=== PATIENT | female | born 1975 | race Two or more races ===

== ENCOUNTER 2016-07-10 08:52 | Day surgery (SDC) | payer OTHER ==
[~2016-07-10] VITALS: Ht 149.9 cm; Wt 47.0 kg
[2016-07-10] MEDS ORDERED: CALC667C PO (10:10)
[2016-07-10] MEDS ORDERED: SYN112 PO (10:10)
[2016-07-10] MEDS ORDERED: TIROSINT (10:10)
[2016-07-10] MEDS ORDERED: SEVE800T10 PO ×2 (10:10→10:29)
[2016-07-10] MEDS ORDERED: CALC600T11 PO (10:10)
[2016-07-10] MEDS ORDERED: CNC30T PO (10:10)
[2016-07-10 10:12] VITALS: BP 126/78; PULSE 72; RESP 18; Ht 149.9 cm; Wt 47.0 kg
[2016-07-10] MEDS ORDERED: IODIXANOL LOCM 50 ML BTL ONE (11:33)
[2016-07-10] MEDS ORDERED: LIDOCAINE 1% (MDV) 20 ML INJ ONE (11:33)
[2016-07-10] MEDS ORDERED: HEPARIN 1000 UNITS/NS (A-LINE) 1,000 ML ONE (11:33)
[2016-07-10] MEDS ORDERED: SOD CHLORIDE 0.9% 500 ML ONE (11:39)
[2016-07-10] MEDS ORDERED: HEPARIN 1000 UNITS/ML 10 ML INJ ONE (12:11)
[2016-07-10 13:21] VITALS: BP 128/73; PULSE 94; RESP 18
--- NOTE | 2016-07-10 17:17 | OPR ---
DATE OF OPERATION: PREOPERATIVE DIAGNOSIS: Dysfunctional left upper extremity fistula. POSTOPERATIVE DIAGNOSIS: Dysfunctional left upper extremity fistula. OPERATIONS PERFORMED: 1. Left arm shuntogram. 2. Left upper extremity arteriogram. 3. Central venogram. 4. Interpretation and supervision of shuntogram, venogram and arteriogram. 5. Ultrasound guidance into the central vein. 6. Fluoroscopy. 7. Conscious sedation for 1 hour. CONSENT: Risks, benefits, complications, alternative therapies explained to the patient and the [facility], consent obtained. OPERATIVE TECHNIQUE: The patient was placed in supine position, prepped and draped in usual sterile fashion. Access was gained in the left arm fistula which was in the arm. Micropuncture was infuse d using ultrasound guidance technique. A shuntogram and arteriogram was then performed. Interpreta tion and supervision of the shuntogram and arteriogram revealed the graft which appeared to be going from the brachial artery to the basilic vein in the left arm. The graft appeared to be patent. Th ere was a 90% stenosis in the arterial anastomosis and the venous anastomosis was patent; however, t he basilic vein was completely occluded distal to the anastomosis and that went through collaterals to the brachial vein which was patent, into axillary an vein which was also patent and a subclavian vein which was patent, and innominate vein and superior vena cava, which were also patent. Procedur e also central venogram. The arterial anastomosis was inspected. It was patent; however, there was a 90% stenosis. Multiple attempts were made to pass a wire through the anastomosis which was not successful. The catheter w as then removed. The patient will be assessed for a revision of the fistula. Discussed with the nena reynolds. All questions answered. Dictated By: THEO VIDALES/VIRAJ Conf#: [id number] DID#: [id number]
== END 2016-07-10 13:35 | disposition home or self-care (01) ==
LOC: SDS 08:52
PROVIDERS: ATTEND Thoracic Surgery (Cardiothoracic Vascular Surgery)
DX: T82.898A Other specified complication of vascular prosthetic devices, implants and grafts, initial encounter (principal); Y84.1 Kidney dialysis as the cause of abnormal reaction of the patient, or of later complication, without mention of misadventure at the time of the procedure; Y92.89 Other specified places as the place of occurrence of the external cause; I12.0 Hypertensive chronic kidney disease with stage 5 chronic kidney disease or end stage renal disease; N18.6 End stage renal disease
CPT/HCPCS: 36901; 84132; 84703; C1725; C1769; J1644; J7040; Q9967; Z7610

== ENCOUNTER 2016-07-21 10:55 | Inpatient (IN) | payer OTHER ==
[~2016-07-21] VITALS: Ht 149.9 cm; Wt 45.6 kg
[~2016-07-21 10:55] MED LIST: CALC667C PO; CNC30T PO; SEVE800T10 PO; SYN112 PO
[2016-07-21 14:17] LABS: BASOPHIL # 0.1 10^3/ul (0.0-0.1); BASOPHILS % 0.5 % (0.0-2.0); EOSINOPHILS # 0.4 10^3/ul (0.0-0.5); EOSINOPHILS % 3.4 % (0.0-7.0); HEMOGLOBIN 11.2 g/dl (12.0-16.0); LYMPHOCYTES # 2.5 10^3/ul (0.8-2.9); MEAN CORPUSCULAR HEMOGLOBIN 32.6 pg (29.0-33.0); MEAN CORPUSCULAR HGB CONC 33.9 g/dl (32.0-37.0); MEAN CORPUSCULAR VOLUME 96.2 fl (82.0-101.0); MEAN PLATELET VOLUME 8.3 fl (7.4-10.4); MONOCYTE # 0.6 10^3/ul (0.3-0.9); MONOCYTES % 4.8 % (0.0-11.0); NEUTROPHIL # 8.3 10^3/ul (1.6-7.5); NEUTROPHILS % 70.3 % (39.0-77.0); PLATELET COUNT 325 10^3/UL (140-440); RED BLOOD COUNT 3.43 10^6/ul (4.20-5.40); RED CELL DISTRIBUTION WIDTH 13.7 % (11.5-14.5); UNCORRECTED WBC 11.8 10^3/ul (4.8-10.8); WHITE BLOOD COUNT 11.8 10^3/ul (4.8-10.8)
--- NOTE | 2016-07-21 14:21 | RADRPT ---
PROCEDURE: XR Chest. CLINICAL INDICATION: Renal Failure. Dyspnea. TECHNIQUE: Single frontal chest x-ray. COMPARISON: None. FINDINGS: The lungs are clear of acute infiltrates, edema, effusions, or masses.. There is mild cardiomegaly. . The osseous structures are intact. IMPRESSION: No acute cardiopulmonary disease. Mild cardiomegaly. RPTAT: HJPL .Jose De Jesus Gomez MD, MD Date Time Electronically viewed and signed by .Jose De Jesus Gomez MD, on 07/21/2016 14:21 .L/
[2016-07-21 14:32] LABS: POTASSIUM 4.5 mmol/L (3.5-5.1)
[2016-07-21 14:34] LABS: INR 0.98; PARTIAL THROMBOPLASTIN TIME 26.3 Sec (25.0-35.0)
[2016-07-21 14:35] LABS: CREATININE 9.31 mg/dl (0.44-1.00)
[2016-07-21 14:36] LABS: CALCIUM 9.6 mg/dl (8.4-10.2)
[2016-07-21 14:57] LABS: CONDITION 1
[2016-07-21] MEDS ORDERED: NACL 0.9% 3 ML SYG IV SCH (15:00)
[2016-07-21] MEDS ORDERED: ACETAMINOPHEN 325 MG TAB PO PRN ×2 (15:00→16:00)
[2016-07-21] MEDS ORDERED: ONDANSETRON 4 MG INJ IV PRN ×2 (15:00→16:00)
[2016-07-21] MEDS ORDERED: morphine 2 MG INJ IV PRN (15:00)
--- NOTE | 2016-07-21 15:03 | ERA ---
ER Documentation Chief Complaint Date/Time DATE: 07/21/16 TIME: 13:48 Chief Complaint left upper arm fistula clotted. unable to dialyze today. no complaints. HPI 41-year-old female with history of end-stage renal disease on dialysis T//Sat hypothyroidism status post thyroidectomy referred to the ED for evaluation of malfunctioning left upper extremity AV shunt. On 07/10/2014 patient had a shuntogram which revealed a 90% stenosis in the arterial side which was unable to be repaired. Today dialysis could not be performed was referred to the ED. She denies chest pain or palpitations. No shortness of breath or cough. No abdominal pain nausea or vomiting. No fevers or chills. ROS All systems reviewed and are negative except as per history of present illness. Medications Home Meds Reported Medications Sevelamer Hcl* (Renagel*) 800 Mg Tablet, 800 MG PO WITH MEALS, TAB 07/10/16 Calcium Acetate* (Calcium Acetate*) 667 Mg Capsule, 667 MG PO WITH MEALS, #30 CAP 07/10/16 Cinacalcet* (Sensipar*) 30 Mg Tab, 30 MG PO DAILY, TAB 07/10/16 Levothyroxine Sodium* (Levothyroxine Sodium*) 112 Mcg Tablet, 112 MCG PO BEFORE BREAKFAST, #30 TAB 07/10/16 Allergies Allergies: Coded Allergies: Penicillins (Verified Allergy, Severe, 07/10/16) PMhx/Soc Reviewed in chart. As per HPI. History of Surgery: Yes (AV FISTUAL PLACEMENT, THYROIDECTOMY, C /S X1) Anesthesia Reaction: No Hx Neurological Disorder: No Hx Respiratory Disorders: No Hx Cardiac Disorders: Yes (PALPITATIONS) Hx Psychiatric Problems: Yes (DEPRESSION) Hx Miscellaneous Medical Probl: Yes (ANEMIA) Hx Alcohol Use: No Hx Substance Use: No Hx Tobacco Use: No Smoking Status: Never smoker FmHx Reviewed in chart. Not relevant to presenting complaint. Physical Exam Vitals Vital Signs Date Time Temp Pulse Resp B/P Pulse Ox O2 Delivery O2 Flow Rate FiO2 07/21/16 11:03 98.6 84 20 119/78 98 Physical Exam Const: Alert, no acute distress. Head: Atraumatic Eyes: Normal Conjunctiva ENT: Normal External Ears, Nose and Mouth. Neck: Full range of motion. No JVD. Resp: Clear to auscultation bilaterally Cardio: Regular rate and rhythm, no murmurs Abd: Soft, non tender, non distended. Normal bowel sounds Skin: No petechiae or rashes Back: No midline or flank tenderness Ext: No cyanosis, or edema. Left upper extremity AV shunt without palpable thrill or audible bruit. Neur: Awake and alert. No focal deficit. Psych: Normal Mood and Affect Result Diagram: 07/21/16 1400 07/21/16 1400 Results 24 hrs Laboratory Tests Test 07/21/16 14:00 Activated Partial Thromboplast Time 26.3Sec Anion Gap 28 Basophils # 0.110^3/ul Basophils % 0.5% Blood Urea Nitrogen 60mg/dl Calcium Level 9.6mg/dl Carbon Dioxide Level 22mmol/L Chloride Level 96mmol/L Creatinine 9.31mg/dl Eosinophils # 0.410^3/ul Eosinophils % 3.4% Glucose Level 115mg/dl Hematocrit 33.0% Hemoglobin 11.2g/dl INR International Normalized Ratio 0.98 Lymphocytes # 2.510^3/ul Lymphocytes % 21.0% Mean Corpuscular Hemoglobin 32.6pg Mean Corpuscular Hemoglobin Concent 33.9g/dl Mean Corpuscular Volume 96.2fl Mean Platelet Volume 8.3fl Monocytes # 0.610^3/ul Monocytes % 4.8% Neutrophils # 8.310^3/ul Neutrophils % 70.3% Nucleated Red Blood Cells # 0.010^3/ul Nucleated Red Blood Cells % 0.0/100WBC Platelet Count 04183^3/UL Potassium Level 4.5mmol/L Prothrombin Time 13.0Sec Prothrombin Time Ratio 1.0 Red Blood Count 3.4310^6/ul Red Cell Distribution Width 13.7% Sodium Level 141mmol/L White Blood Count 11.810^3/ul Current Medications Medications (Trade) Dose Ordered Sig/Sandor Route PRN Reason Start Time Stop Time Status Last Admin Dose Admin IV Flush (NS 3 ml) 3 ml PER PROTOCOL IV 07/21/16 15:00 Ondansetron HCl (Zofran Inj) 4 mg Q6H PRN IV NAUSEA AND/OR VOMITING 07/21/16 15:00 Acetaminophen (Tylenol Tab) 650 mg Q6H PRN PO PAIN LEVEL 1-3 OR FEVER 07/21/16 15:00 Morphine Sulfate (morphine) 2 mg Q4H PRN IV SEVERE PAIN LEVEL 7-10 07/21/16 15:00 Famotidine (Pepcid) 20 mg DAILY PO 07/21/16 21:00 Heparin Sodium (Porcine) (Heparin (5000 Units/0.5 ml)) 5,000 unit Q12 SC 07/21/16 21:00 Calcium Acetate (Phoslo) 667 mg WITH MEALS PO 07/21/16 18:00 Cinacalcet (Sensipar) 30 mg DAILY PO 07/22/16 09:00 UNV Levothyroxine Sodium (Synthroid) 112 mcg BEFORE BREAKFAST PO 07/22/16 07:00 UNV Sevelamer HCl (Renagel) 800 mg WITH MEALS PO 07/21/16 18:00 EKG: TIME: 14:03. sinus rhythm. Rate 81. No acute ST segment elevation depression. No ectopy. EP Interpretation: Abnormal EKG. IMAGING: PROCEDURE: XR Chest. CLINICAL INDICATION: Renal Failure. Dyspnea. TECHNIQUE: Single frontal chest x-ray. COMPARISON: None. FINDINGS: The lungs are clear of acute infiltrates, edema, effusions, or masses.. There is mild cardiomegaly.. The osseous structures are intact. IMPRESSION: No acute cardiopulmonary disease. Mild cardiomegaly. RPTAT: HJPL .Jose De Jesus Gomez MD, Date Time Electronically viewed and signed by .Jose De Jesus Gomez MD, on 07/21/2016 14:21 .L/ PROCEDURE: XR Chest. CLINICAL INDICATION: Renal Failure. Dyspnea. TECHNIQUE: Single frontal chest x-ray. COMPARISON: None. FINDINGS: The lungs are clear of acute infiltrates, edema, effusions, or masses.. There is mild cardiomegaly.. The osseous structures are intact. IMPRESSION: No acute cardiopulmonary disease. Mild cardiomegaly. RPTAT: HJPL .Jose De Jesus Gomez MD, MD Date Time Electronically viewed and signed by .Jose De Jesus Gomez MD, on 07/21/2016 14:21 .L/ Procedures/MDM DOCUMENTS REVIEWED: ED nurse, prior records MEDICAL DECISION MAKIN-year-old female with history of end-stage renal disease on dialysis T/TH/Sat and hypothyroidism status post thyroidectomy referred to the ED for evaluation of malfunctioning left upper extremity AV shunt. Patient has a nonfunctioning left upper extremity AV shunt will need placement of temporary dialysis access subsequent revision. No evidence of volume overload or hyperkalemia. Vascular surgery was consulted. Patient will be admitted to [facility]. Counseled patient and family regarding diagnosis, diagnostic results and plan for admission. CALLS/CONSULTS: Time 14:30, Dr. Askew, Recommends admission and will place dialysis catheter CALLS/CONSULTS: Time 14:50, Dr. Covarrubias, Recommends admission to [facility]. PATIENT CARE TRANSITIONED: Time: 14:55, Dr. Covarrubias. Departure Diagnosis: Primary Impression: Problem with dialysis access Qualified Code: T82.898A - Problem with dialysis access, initial encounter Additional Impressions: End stage renal disease on dialysis Postoperative hypothyroidism Uremia Condition: Serious VIN ALVARADO MD Jul 21, 2016 15:01 VIN ALVARADO MD Jul 21, 2016 15:01
[2016-07-21 15:53] LABS: MAGNESIUM 3.3 mg/dl (1.7-2.5)
--- NOTE | 2016-07-21 15:53 | HP ---
Date/Time of Note Date/Time of Note DATE: 07/21/16 TIME: 15:45 Assessment/Plan VTE Prophylaxis VTE Prophylaxis Intervention: heparin Assessment/Plan Assessment/Plan 41 yo female with a past medical history ESRD on HD, hypothyroidism who came in for clotted fistula. 1. Clotted AV fistula - will admit the patient to med/surg, consult Dr. Askew for thrombectomy, IV heparin, jordan catheter to be placed. 2. ESRD on HD - once jordan placed, dialysis as per nephro 3. Anemia of chronic kidney disease - continue with epogen 4. Hypothyroidism - check TSH, continue with synthroid 5. Leukocytosis - reactive - monitor trend 6. GI ppx - pepcid po 7. DVT ppx - heparin answered all of her questions. as per clinical course. this history and physical took greater then 45 minutes to complete HPI/ROS Admit Date/Time Admit Date/Time 07/21/16, 3:45 pm Hx of Present Illness 41 yo female with a past medical history ESRD on HD, hypothyroidism who came in for clotted fistula. She went to the dialysis center today, and there was blood coming out of the fistula. They sent her here to [facility] ER for further evaluation and treatment. She denies any chest pain, shortness of breath , loss of consciousness, headaches, urinary/bowel irregularities, fevers/chills , nausea/vomiting/diarrhea/constipation, or other constitutional symptoms. ED course: Dr. Askew was notified ROS 14 point review of systems completed, please refer to HPI for any positive findings PMH/Family/Social Past Medical History Medical History: hypothyroid, renal disease Past Surgical History AV fistula left upper extremity Family History Significant Family History: no pertinent family hx Social History Alcohol Use: none Smoking Status: Never smoker Drug Use: none Exam/Review of Systems Vital Signs Vitals Vital Signs Date Time Temp Pulse Resp B/P Pulse Ox O2 Delivery O2 Flow Rate FiO2 07/21/16 11:03 98.6 84 20 119/78 98 Exam Exam Gen Fatou: NAD, AAOx4 HEENT: NC/AT, PERRLA, EOMI, no pharyngeal erythema, no tonsillar exudates, no lymphadenopathy, no JVD, no carotid bruits NECK: supple, no thyromegaly THORAX: symmetrical, no obvious deformities CV: S1S2, RRR, no M/G/R Lungs: CTAB no W/C/R/R Abd: soft, NT/ND, +BS, no rebound, no guarding, neg HSM EXT: no edema, no ecchymosis, no clubbing, FROM, LUE extremity no bruit/thrill identified Neuro: CN II-XII grossly intact, no focal deficits Psych: good mentation, alert and oriented, good mood and affect Skin: C/D/I Labs Result Diagram: 07/21/16 1400 07/21/16 1400 Medications Medications Current Medications Ondansetron HCl (Zofran Inj) 4 mg Q6H PRN IV NAUSEA AND/OR VOMITING; Start 04/26 at 15:00 Acetaminophen (Tylenol Tab) 650 mg Q6H PRN PO PAIN LEVEL 1-3 OR FEVER; Start at 15:00 Morphine Sulfate (morphine) 2 mg Q4H PRN IV SEVERE PAIN LEVEL 7-10; Start 07/21 at 15:00 Famotidine (Pepcid) 20 mg DAILY PO ; Start 07/21/16 at 21:00 Heparin Sodium (Porcine) (Heparin (5000 Units/0.5 ml)) 5,000 unit Q12 SC ; Start 07/21/16 at 21:00 Cinacalcet (Sensipar) 30 mg DAILY PO ; Start 07/22/16 at 09:00; Status UNV Procedures Procedures CXR IMPRESSION: No acute cardiopulmonary disease. Mild cardiomegaly. WAYNE STARR MD Jul 21, 2016 15:52
[2016-07-21 15:54] LABS: CHOL/HDL RATIO 5.8 RATIO
[2016-07-21 16:00] VITALS: TEMP 98.6
[2016-07-21 16:54] LABS: THYROID STIMULATING HORMONE 25.2 MIU/L (0.465-4.680)
[2016-07-21 20:29] VITALS: BP 128/77; RESP 20
[2016-07-21] MEDS: SEVELAMER 800 MG TAB PO SCH (21:03)
[2016-07-21] MEDS: CALCIUM ACETATE 667 MG CAP PO SCH (21:03)
[2016-07-21] MEDS: FAMOTIDINE 20 MG TAB PO SCH (21:04)
[2016-07-21] MEDS: HEPARIN 5,000 UNIT/0.5 ML SYG SC SCH (21:04)
[2016-07-22] VITALS (11 sets, daily range): BP systolic 93–119; BP diastolic 58–78; PULSE 85–99; RESP 18
[2016-07-22 06:17] LABS: BASOPHILS % 0.4 % (0.0-2.0); EOSINOPHILS # 0.3 10^3/ul (0.0-0.5); EOSINOPHILS % 3.8 % (0.0-7.0); HEMOGLOBIN 10.2 g/dl (12.0-16.0); LYMPHOCYTES # 2.1 10^3/ul (0.8-2.9); LYMPHOCYTES % 22.4 % (15.0-51.0); MEAN CORPUSCULAR HGB CONC 34.1 g/dl (32.0-37.0); MEAN CORPUSCULAR VOLUME 96.8 fl (82.0-101.0); MEAN PLATELET VOLUME 8.2 fl (7.4-10.4); MONOCYTE # 0.4 10^3/ul (0.3-0.9); MONOCYTES % 4.7 % (0.0-11.0); NEUTROPHIL # 6.3 10^3/ul (1.6-7.5); NEUTROPHILS % 68.7 % (39.0-77.0); PLATELET COUNT 278 10^3/UL (140-440); RED CELL DISTRIBUTION WIDTH 13.4 % (11.5-14.5); UNCORRECTED WBC 9.2 10^3/ul (4.8-10.8); WHITE BLOOD COUNT 9.2 10^3/ul (4.8-10.8)
[2016-07-22 06:35] LABS: POTASSIUM 5.8 mmol/L (3.5-5.1)
[2016-07-22 06:36] LABS: CONDITION 1
[2016-07-22 06:38] LABS: CREATININE 9.68 mg/dl (0.44-1.00)
[2016-07-22 06:39] LABS: CALCIUM 9.8 mg/dl (8.4-10.2)
[2016-07-22] MEDS ORDERED: LEVOTHYROXINE 112 MCG TAB PO SCH (07:00)
[2016-07-22] MEDS: FAMOTIDINE 20 MG TAB PO SCH (08:35)
[2016-07-22] MEDS: SEVELAMER 800 MG TAB PO SCH ×3 (08:35→17:41)
[2016-07-22] MEDS: CALCIUM ACETATE 667 MG CAP PO SCH ×3 (08:35→17:41)
[2016-07-22] MEDS: CINACALCET 30 MG TAB PO SCH (08:35)
[2016-07-22] MEDS: HEPARIN 5,000 UNIT/0.5 ML SYG SC SCH ×2 (08:36→20:40)
--- NOTE | 2016-07-22 09:17 | CONS ---
DATE OF ADMISSION: 07/21/2016 DATE OF CONSULTATION: 07/21/2016 TYPE OF CONSULTATION: Nephrology. REFERRING PHYSICIAN: Juancho Covarrubias MD REASON FOR CONSULTATION: End-stage renal disease on hemodialysis who presented with a clotted AV fistula, missed hemodialysis. HISTORY OF PRESENT ILLNESS: This is a 41-year-old female with a past medical history of end-stage renal disease on hemodialysis, hypothyroidism, anemia of chronic kidney disease, history of AV fistula placed by Dr. Askew who presented with a clotted AV fistula. The patient went to dialysis unit where she was noted to have a clotted AV fistula, so she was sent to the [facility] Emergency Room. The patient is getting admitted because she missed her hemodialysis and has a clotted AV fistula. She currently has no dialysis access. Vascular surgery, Dr. Askew, has been consulted. REVIEW OF SYSTEMS: As per HPI. PAST MEDICAL HISTORY: Hypertension, hyperlipidemia, hypothyroidism, end-stage renal disease on hemodialysis. PAST SURGICAL HISTORY: History of AV fistula and history of previous PermCath dialysis catheter placement. SOCIAL HISTORY: No smoking, alcohol, or recreational drug use. FAMILY HISTORY: No history of any chronic kidney disease, CVA, stroke, or NC in the family. PHYSICAL EXAMINATION: VITAL SIGNS: Temperature 98.6, heart rate 77, respirations 20, blood pressure 121/82, saturation 100% on room air. GENERAL: Awake, alert, in no distress. HEENT: Normal. Oropharynx clear. NECK: Supple, no JVD, no lymphadenopathy. LUNGS: Clear to auscultation. No crackles, no wheezes. HEART: S1, S2, with regular rate and rhythm, no murmur. ABDOMEN: Soft, nontender, nondistended. Bowel sounds are present. EXTREMITIES: No clubbing, cyanosis, edema. NEUROLOGICAL: Nonfocal, intact. PSYCHIATRIC: Appropriate affect and mood. SKIN: Left upper extremity AV fistula in place. No bruit. No thrill. Likely clotting. LABORATORY DATA/DIAGNOSTIC IMAGING: WBC 11.8, hemoglobin 11.2, platelet count 325. Sodium 141, potassium 4.5, chloride 96, bicarbonate 22, BUN 60, creatinine 9.3, glucose 115, calcium 9.6. LFTs triglycerides 405, magnesium 3.3. TSH 25.2. PT 13, PTT 26.3, INR 0.98. Chest x-ray, 1 view done in the emergency room, shows no acute cardiopulmonary disease, mild cardiomegaly. IMPRESSION: This is a 41-year-old female with 1. Clotted left upper extremity AV fistula, missed hemodialysis for today. 2. No dialysis access is available. 3. End-stage renal disease on hemodialysis. 4. Hypertension. 5. Hypothyroidism. 6. Leukocytosis, reactive. PLAN: 1. Thank you, Dr. Juancho Covarrubias, for this consultation. The patient currently seen in the emergency room. She is getting admitted to the med/surg floor. 2. The patient's potassium and other electrolytes have been stable. Her blood pressure is normal, saturation is normal, chest x-ray negative for any acute findings. I will plan for her hemodialysis to be done tomorrow after the [place] dialysis catheter placement or declotting of her left upper extremity AV fistula. 3. Vascular surgery, Dr. Askew, has been consulted from the emergency room , so we will wait until the patient is evaluated by vascular surgery. The patient is currently seen in the emergency room. She will be followed up along with the primary care service and vascular surgery, Dr. Askew. Total Time Spent in patient Care and consultation including communication with Nursing Staff and educating Patient and Familiy is more than 60 minutes. Dictated By: STANLEY WORKMAN MD, KP/VIRAJ Conf#: [id number] DID#: [id number]
[2016-07-22 12:11] LABS: T3 UPTAKE 29.8 % (23.5-40.5)
--- NOTE | 2016-07-22 12:14 | PN ---
Date/Time of Note Date/Time of Note DATE: 07/22/16 TIME: 12:09 Assessment/Plan VTE Prophylaxis VTE Prophylaxis Intervention: heparin Lines/Catheters IV [facility]from [facility] Urinary Cath still in place: No Assessment/Plan Assessment/Plan 41 yo female with a past medical history ESRD on HD, hypothyroidism who came in for clotted fistula. 1. Clotted AV fistula - jordan placed, dialysis today, thrombectomy possibly tomorrow 07/23/2016 2. ESRD on HD - jordan placed, dialysis as per nephro 3. Anemia of chronic kidney disease - continue with epogen 4. Hypothyroidism - elevated to 25 TSH - increased to 138 mcg today, continue with synthroid, endo consulted 5. Leukocytosis - reactive - monitor trend 6. GI ppx - pepcid po 7. DVT ppx - heparin answered all of her questions. as per clinical course. angiogram with thrombectomy tomorrow this progress note took greater than 40 minutes to complete Subjective 24 Hr Interval Summary Free Text/Dictation Patient was admitted for clotted fistula. No overnight events. She had a jordan catheter placed. Spoke to her about the care plan. 15 minutes spent. Exam/Review of Systems Vital Signs Vitals Vital Signs Date Time Temp Pulse Resp B/P Pulse Ox O2 Delivery O2 Flow Rate FiO2 07/22/16 08:23 98.1 86 18 93/58 100 07/21/16 16:00 Room Air Intake and Output 07/21/16 07/21/16 07/22/16 15:00 23:00 07:00 Intake Total 360 ml Balance 360 ml Exam Gen Fatou: NAD, AAOx4 HEENT: NC/AT, PERRLA, EOMI, no pharyngeal erythema, no tonsillar exudates, no lymphadenopathy, no JVD, no carotid bruits NECK: supple, no thyromegaly THORAX: symmetrical, no obvious deformities CV: S1S2, RRR, no M/G/R Lungs: CTAB no W/C/R/R Abd: soft, NT/ND, +BS, no rebound, no guarding, neg HSM EXT: no edema, no ecchymosis, no clubbing, FROM, LUE extremity no bruit/thrill identified, jordan placed right groin Neuro: CN II-XII grossly intact, no focal deficits Psych: good mentation, alert and oriented, good mood and affect Skin: C/D/I Results Result Diagram: 07/22/16 0535 07/22/16 0535 Results 24 hrs Laboratory Tests Test 07/21/16 14:00 07/22/16 05:35 Activated Partial Thromboplast Time 26.3 Anion Gap 28 H 24 H Basophils # 0.1 0.0 Basophils % 0.5 0.4 Blood Urea Nitrogen 60 H 69 H Calcium Level 9.6 9.8 Carbon Dioxide Level 22 20 L Chloride Level 96 L 99 Cholesterol Level 234 H Cholesterol/HDL Ratio 5.8 Creatinine 9.31 H 9.68 H Eosinophils # 0.4 0.3 Eosinophils % 3.4 3.8 Glucose Level 115 82 HDL Cholesterol 40 Hematocrit 33.0 L 30.0 L Hemoglobin 11.2 L 10.2 L Hemoglobin A1c 4.5 INR International Normalized Ratio 0.98 LDL Cholesterol, Calculated 113 Lymphocytes # 2.5 2.1 Lymphocytes % 21.0 22.4 Magnesium Level 3.3 H Mean Corpuscular Hemoglobin 32.6 33.0 Mean Corpuscular Hemoglobin Concent 33.9 34.1 Mean Corpuscular Volume 96.2 96.8 Mean Platelet Volume 8.3 8.2 Monocytes # 0.6 0.4 Monocytes % 4.8 4.7 Neutrophils # 8.3 H 6.3 Neutrophils % 70.3 68.7 Nucleated Red Blood Cells # 0.0 0.0 Nucleated Red Blood Cells % 0.0 0.0 Platelet Count 325 278 Potassium Level 4.5 5.8 H Prothrombin Time 13.0 Prothrombin Time Ratio 1.0 Red Blood Count 3.43 L 3.10 L Red Cell Distribution Width 13.7 13.4 Sodium Level 141 137 Thyroid Stimulating Hormone (TSH) 25.200 H Triglycerides Level 405 H White Blood Count 11.8 H 9.2 # Medications Medications Current Medications Ondansetron HCl (Zofran Inj) 4 mg Q6H PRN IV NAUSEA AND/OR VOMITING; Start 04/26 at 15:00 Acetaminophen (Tylenol Tab) 650 mg Q6H PRN PO PAIN LEVEL 1-3 OR FEVER; Start at 15:00 Morphine Sulfate (morphine) 2 mg Q4H PRN IV SEVERE PAIN LEVEL 7-10; Start 07/21 at 15:00 Famotidine (Pepcid) 20 mg DAILY PO Last administered on 07/22/16 08:35; Admin Dose 20 MG; Start 07/21/16 at 21:00 Heparin Sodium (Porcine) (Heparin (5000 Units/0.5 ml)) 5,000 unit Q12 SC Last administered on 07/22/16 08:36; Admin Dose 5,000 UNIT; Start 07/21/16 at 21:00 Cinacalcet (Sensipar) 30 mg DAILY PO Last administered on 07/22/16 08:35; Admin Dose 30 MG; Start 07/22/16 at 09:00 Levothyroxine Sodium (Synthroid) 137 mcg DAILY@06 PO ; Start 07/23/16 at 06:00 WAYNE STARR MD Jul 22, 2016 12:14
--- NOTE | 2016-07-22 12:25 | CONS ---
Date/Time of Note Date/Time of Note DATE: 07/22/16 TIME: 12:23 Assessment/Plan Assessment/Plan Additional Assessment/Plan 1. Clotted left upper extremity AV fistula, missed hemodialysis for today. 2. No dialysis access is available. 3. End-stage renal disease on hemodialysis. 4. Hypertension. 5. Hypothyroidism. 6. Leukocytosis, reactive. PLAN: plan for HD today through [facility] HD catheter to declot her AVF will follow up pt gest HD in [place] Consultation Date/Type/Reason Admit Date/Time Jul 21, 2016 at 15:51 Initial Consult Date 07/21/2016 Type of Consultation: NEPHROLOGY Reason for Consultation ESRD on HD, clotted AVF Referring Provider: WAYNE STARR MD 24 HR Interval Summary Free Text/Dictation s/p jordan HD catheter Exam/Review of Systems Vital Signs Vitals Vital Signs Date Time Temp Pulse Resp B/P Pulse Ox O2 Delivery O2 Flow Rate FiO2 07/22/16 08:23 98.1 86 18 93/58 100 07/21/16 16:00 Room Air Intake and Output 07/21/16 07/21/16 07/22/16 14:59 22:59 06:59 Intake Total 360 ml Balance 360 ml Exam GENERAL: Awake, alert, in no distress. HEENT: Normal. Oropharynx clear. NECK: Supple, no JVD, no lymphadenopathy. LUNGS: Clear to auscultation. No crackles, no wheezes. HEART: S1, S2, with regular rate and rhythm, no murmur. ABDOMEN: Soft, nontender, nondistended. Bowel sounds are present. EXTREMITIES: No clubbing, cyanosis, edema. NEUROLOGICAL: Nonfocal, intact. PSYCHIATRIC: Appropriate affect and mood. SKIN: Left upper extremity AV fistula in place. No bruit. No thrill. Likely clotting. Results Result Diagram: 07/22/16 0535 07/22/16 0535 Results 24 hrs Laboratory Tests Test 07/21/16 14:00 07/22/16 05:35 07/22/16 10:54 Activated Partial Thromboplast Time 26.3 Anion Gap 28 H 24 H Basophils # 0.1 0.0 Basophils % 0.5 0.4 Blood Urea Nitrogen 60 H 69 H Calcium Level 9.6 9.8 Carbon Dioxide Level 22 20 L Chloride Level 96 L 99 Cholesterol Level 234 H Cholesterol/HDL Ratio 5.8 Creatinine 9.31 H 9.68 H Eosinophils # 0.4 0.3 Eosinophils % 3.4 3.8 Glucose Level 115 82 HDL Cholesterol 40 Hematocrit 33.0 L 30.0 L Hemoglobin 11.2 L 10.2 L Hemoglobin A1c 4.5 INR International Normalized Ratio 0.98 LDL Cholesterol, Calculated 113 Lymphocytes # 2.5 2.1 Lymphocytes % 21.0 22.4 Magnesium Level 3.3 H Mean Corpuscular Hemoglobin 32.6 33.0 Mean Corpuscular Hemoglobin Concent 33.9 34.1 Mean Corpuscular Volume 96.2 96.8 Mean Platelet Volume 8.3 8.2 Monocytes # 0.6 0.4 Monocytes % 4.8 4.7 Neutrophils # 8.3 H 6.3 Neutrophils % 70.3 68.7 Nucleated Red Blood Cells # 0.0 0.0 Nucleated Red Blood Cells % 0.0 0.0 Platelet Count 325 278 Potassium Level 4.5 5.8 H Prothrombin Time 13.0 Prothrombin Time Ratio 1.0 Red Blood Count 3.43 L 3.10 L Red Cell Distribution Width 13.7 13.4 Sodium Level 141 137 Thyroid Stimulating Hormone (TSH) 25.200 H Triglycerides Level 405 H White Blood Count 11.8 H 9.2 # Free Thyroxine Index 2.44 Thyroxine (T4) 8.2 Triiodothyronine (T3) Uptake 29.8 Medications Medications Current Medications Ondansetron HCl (Zofran Inj) 4 mg Q6H PRN IV NAUSEA AND/OR VOMITING; Start 04/26 at 15:00 Acetaminophen (Tylenol Tab) 650 mg Q6H PRN PO PAIN LEVEL 1-3 OR FEVER; Start at 15:00 Morphine Sulfate (morphine) 2 mg Q4H PRN IV SEVERE PAIN LEVEL 7-10; Start 07/21 at 15:00 Famotidine (Pepcid) 20 mg DAILY PO Last administered on 07/22/16 08:35; Admin Dose 20 MG; Start 07/21/16 at 21:00 Heparin Sodium (Porcine) (Heparin (5000 Units/0.5 ml)) 5,000 unit Q12 SC Last administered on 07/22/16 08:36; Admin Dose 5,000 UNIT; Start 07/21/16 at 21:00 Cinacalcet (Sensipar) 30 mg DAILY PO Last administered on 07/22/16t 08:35; Admin Dose 30 MG; Start 07/22/16 at 09:00 Levothyroxine Sodium (Synthroid) 137 mcg DAILY@06 PO ; Start 07/23/16 at 06:00 STANLEY WORKMAN MD Jul 22, 2016 12:25
--- NOTE | 2016-07-22 13:17 | CONS ---
Date/Time of Note Date/Time of Note DATE: 07/22/16 TIME: 13:11 Assessment/Plan Assessment/Plan Problems: (1) Postoperative hypothyroidism Status: Chronic Comment: Increase LT4 from 112 mcg/d to 137 mcg/d. Recheck in 6-8 weeks. Reconsult prn. Of note, I am uncertain how thyrotoxicosis could have caused end -stage renal disease. 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 Found to have blocked AV fistula. Referred to [facility] to have problem fixed or new fistula placed. On admit TSH checked and was found to be 25. Pt. reports PMD did recently find her to be hypothyroid and increase her from 100 mcg/d of LT4 to 112 mcg/d. No complaints. Constitutional: improved, no complaints Eyes: no complaints ENT: no complaints Respiratory: no complaints Cardiovascular: no complaints Gastrointestinal: no complaints Genitourinary: no complaints Musculoskeletal: no complaints Skin: no complaints Neurologic: no complaints Endocrine: no complaints Psychological: nl mood/affect, no complaints Past Medical History Medical History: hyperthyroid, hypothyroid, renal disease Past Surgical History Past Surgical Hx: other (, total thyroidectomy, perma-cath placement and removal, AV-fistula placement) Family History Significant Family History: diabetes (father) Social History b. [facility], in [facility] 26 y, single, 1 child, unemployed, lives w/ mother Alcohol Use: none Smoking Status: Never smoker Drug Use: none Exam/Review of Systems Vital Signs Vitals VS - Last 72 Hours, by Label Date Time Temp Pulse Resp B/P Pulse Ox O2 Delivery O2 Flow Rate FiO2 07/22/16 08:23 98.1 86 18 93/58 100 07/21/16 20:29 98.4 80 20 128/77 100 07/21/16 16:00 98.6 77 20 121/82 100 Room Air 07/21/16 14:00 98.6 84 20 127/82 100 Room Air 07/21/16 11:03 98.6 84 20 119/78 98 Vital Signs Date Time Temp Pulse Resp B/P Pulse Ox O2 Delivery O2 Flow Rate FiO2 07/22/16 08:23 98.1 86 18 93/58 100 07/21/16 16:00 Room Air Intake and Output 07/21/16 07/21/16 07/22/16 15:00 23:00 07:00 Intake Total 360 ml Balance 360 ml Exam Constitutional: alert, oriented, well developed Psych: nl mood/affect, no complaints Eyes: EOMI, PERRL, nl conjunctiva, nl lids, nl sclera ENMT: mucosa pink and moist, nl external ears & nose Neck: non-tender, supple, No bruits, No masses, No thyromegaly (extensive scarring overlying thyroid bed) Respiratory: clear to auscultation, normal air movement Cardiovascular: nl pulses, regular rate and rhythm, No edema, No murmurs/extra sounds, No rub Gastrointestinal: bowel sounds, nl liver, spleen, non-tender, soft, No mass, No rebound or guarding Musculoskeletal: nl extremities to inspection Extremities: normal pulses, No clubbing, No cyanosis, No edema 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, nl mental status, nl speech, nl strength Results Result Diagram: 07/22/1635 07/22/16 0535 Results 24 hrs Laboratory Tests Test 07/21/16 14:00 07/22/16 05:35 07/22/16 10:54 Activated Partial Thromboplast Time 26.3 Anion Gap 28 H 24 H Basophils # 0.1 0.0 Basophils % 0.5 0.4 Blood Urea Nitrogen 60 H 69 H Calcium Level 9.6 9.8 Carbon Dioxide Level 22 20 L Chloride Level 96 L 99 Cholesterol Level 234 H Cholesterol/HDL Ratio 5.8 Creatinine 9.31 H 9.68 H Eosinophils # 0.4 0.3 Eosinophils % 3.4 3.8 Glucose Level 115 82 HDL Cholesterol 40 Hematocrit 33.0 L 30.0 L Hemoglobin 11.2 L 10.2 L Hemoglobin A1c 4.5 INR International Normalized Ratio 0.98 LDL Cholesterol, Calculated 113 Lymphocytes # 2.5 2.1 Lymphocytes % 21.0 22.4 Magnesium Level 3.3 H Mean Corpuscular Hemoglobin 32.6 33.0 Mean Corpuscular Hemoglobin Concent 33.9 34.1 Mean Corpuscular Volume 96.2 96.8 Mean Platelet Volume 8.3 8.2 Monocytes # 0.6 0.4 Monocytes % 4.8 4.7 Neutrophils # 8.3 H 6.3 Neutrophils % 70.3 68.7 Nucleated Red Blood Cells # 0.0 0.0 Nucleated Red Blood Cells % 0.0 0.0 Platelet Count 325 278 Potassium Level 4.5 5.8 H Prothrombin Time 13.0 Prothrombin Time Ratio 1.0 Red Blood Count 3.43 L 3.10 L Red Cell Distribution Width 13.7 13.4 Sodium Level 141 137 Thyroid Stimulating Hormone (TSH) 25.200 H Triglycerides Level 405 H White Blood Count 11.8 H 9.2 # Free Thyroxine Index 2.44 Thyroxine (T4) 8.2 Triiodothyronine (T3) Uptake 29.8 Medications Medications Current Medications Ondansetron HCl (Zofran Inj) 4 mg Q6H PRN IV NAUSEA AND/OR VOMITING; Start 04/26 at 15:00 Acetaminophen (Tylenol Tab) 650 mg Q6H PRN PO PAIN LEVEL 1-3 OR FEVER; Start at 15:00 Morphine Sulfate (morphine) 2 mg Q4H PRN IV SEVERE PAIN LEVEL 7-10; Start 07/21 at 15:00 Famotidine (Pepcid) 20 mg DAILY PO Last administered on 07/22/16 08:35; Admin Dose 20 MG; Start 07/21/16 at 21:00 Heparin Sodium (Porcine) (Heparin (5000 Units/0.5 ml)) 5,000 unit Q12 SC Last administered on 07/22/16 08:36; Admin Dose 5,000 UNIT; Start 07/21/16 at 21:00 Cinacalcet (Sensipar) 30 mg DAILY PO Last administered on 07/22/16 08:35; Admin Dose 30 MG; Start 07/22/16 at 09:00 Levothyroxine Sodium (Synthroid) 137 mcg DAILY@06 PO ; Start 07/23/16 at 06:00 BRIAN WATTS MD Jul 22, 2016 13:17
--- NOTE | 2016-07-22 19:39 | OPR ---
DATE OF OPERATION: PREOPERATIVE DIAGNOSIS: Renal failure. POSTOPERATIVE DIAGNOSIS: Renal failure. OPERATION PERFORMED: Left arm arteriovenous fistula placement. SURGEON: Octaviano Askew MD ANESTHESIA: Local. CONSENT: Risks, benefits, complications, alternative therapies explained to the patient and the [facility] gino. Consent obtained. OPERATIVE TECHNIQUE: The patient was placed in supine position, prepped, and draped in usual steril e fashion. Lidocaine 1% was used throughout the operation for local anesthesia. Access was gained in the right femoral vein. Guidewire was advanced through without any difficulties. Subcutaneous t issues dilated. A 20 cm dialysis catheter was advanced over the guidewire, secured to skin using si lk sutures. All ports of the catheter were aspirated and injected using heparinized saline solution . The patient tolerated procedure well. Dictated By: OCTAVIANO ASKEW MD FM/NTS Conf#: [id number] DID#: [id number] CC: WAYNE STARR MD;*EndCC*
--- NOTE | 2016-07-22 19:50 | CONS ---
DATE OF ADMISSION: 07/21/2016 DATE OF CONSULTATION: REASON FOR CONSULTATION: End-stage renal disease. HISTORY OF PRESENT ILLNESS: This is a 41-year-old female with a history of end-stage renal disease, currently on dialysis, was found to have a clotted left upper extremity AV fistula. The patient wi ll be needing acute dialysis. PAST MEDICAL HISTORY: Hypertension, diabetes, hyperlipidemia. PAST SURGICAL HISTORY: Dialysis access. ALLERGIES: NONE. SOCIAL HISTORY: No smoking, drinking or drug use. PHYSICAL EXAMINATION: VITAL SIGNS: Blood pressure is 102/60, pulse is 80, respirations 18. CARDIOVASCULAR: Regular rate and rhythm. Normal S1, S2. LUNGS: Clear. ABDOMEN: Soft. EXTREMITIES: Warm. Left upper extremity AV fistula is in place. No thrill or bruit. IMPRESSION: Clotted left upper extremity arteriovenous fistula. RECOMMENDATION: Will proceed with placement of a hemodialysis catheter for acute dialysis to be fol lowed with a thrombectomy of the AV fistula after dialysis ____. Dictated By: THEO VIDALES/VIRAJ Conf#: [id number] DID#: [id number]
[2016-07-22] MEDS ORDERED: HEPARIN 1000 UNITS/ML 10 ML INJ CATHETER SCH (20:00)
[2016-07-23] VITALS (9 sets, daily range): BP systolic 92–140; BP diastolic 62–90; PULSE 104–124; RESP 16–24
[2016-07-23] MEDS: LEVOTHYROXINE 137 MCG TAB PO SCH (05:18)
[2016-07-23] MEDS ORDERED: LEVOTHYROXINE 88 MCG TAB PO SCH (06:00)
[2016-07-23 06:09] LABS: PROTIME 13.2 Sec (12.2-14.2)
[2016-07-23 06:10] LABS: PARTIAL THROMBOPLASTIN TIME 28.1 Sec (25.0-35.0)
[2016-07-23 06:19] LABS: BASOPHILS % 0.3 % (0.0-2.0); EOSINOPHILS # 0.2 10^3/ul (0.0-0.5); EOSINOPHILS % 2.3 % (0.0-7.0); HEMATOCRIT 29.1 % (37.0-47.0); LYMPHOCYTES # 2.2 10^3/ul (0.8-2.9); LYMPHOCYTES % 22.5 % (15.0-51.0); MEAN CORPUSCULAR HEMOGLOBIN 33.1 pg (29.0-33.0); MEAN CORPUSCULAR HGB CONC 34.5 g/dl (32.0-37.0); MEAN PLATELET VOLUME 7.9 fl (7.4-10.4); MONOCYTE # 0.6 10^3/ul (0.3-0.9); MONOCYTES % 5.6 % (0.0-11.0); NEUTROPHIL # 6.8 10^3/ul (1.6-7.5); NEUTROPHILS % 69.3 % (39.0-77.0); PLATELET COUNT 247 10^3/UL (140-440); RED BLOOD COUNT 3.03 10^6/ul (4.20-5.40); RED CELL DISTRIBUTION WIDTH 13.7 % (11.5-14.5); UNCORRECTED WBC 9.8 10^3/ul (4.8-10.8); WHITE BLOOD COUNT 9.8 10^3/ul (4.8-10.8)
[2016-07-23 06:20] LABS: CONDITION 1
[2016-07-23 06:25] LABS: POTASSIUM 4.4 mmol/L (3.5-5.1)
[2016-07-23 06:28] LABS: CREATININE 7.36 mg/dl (0.44-1.00)
[2016-07-23] MEDS: SEVELAMER 800 MG TAB PO SCH ×3 (07:35→17:05)
[2016-07-23] MEDS: CALCIUM ACETATE 667 MG CAP PO SCH ×3 (07:35→17:05)
[2016-07-23] MEDS: HEPARIN 5,000 UNIT/0.5 ML SYG SC SCH ×2 (09:00→20:53)
[2016-07-23] MEDS: CINACALCET 30 MG TAB PO SCH (09:00)
[2016-07-23] MEDS: FAMOTIDINE 20 MG TAB PO SCH (09:00)
--- NOTE | 2016-07-23 14:31 | CONS ---
Date/Time of Note Date/Time of Note DATE: 07/23/16 TIME: 14:29 Assessment/Plan Assessment/Plan Additional Assessment/Plan 1. Clotted left upper extremity AV fistula, missed hemodialysis for today. 2. No dialysis access is available. 3. End-stage renal disease on hemodialysis. 4. Hypertension. 5. Hypothyroidism. 6. Leukocytosis, reactive. PLAN: pt refused HD today awaiting declotting of AVF by will follow up pt gest HD in [place] Consultation Date/Type/Reason Admit Date/Time Jul 21, 2016 at 15:51 Initial Consult Date 07/21/2016 Type of Consultation: NEPHROLOGY Referring Provider: WAYNE STARR MD 24 HR Interval Summary Free Text/Dictation awaiting thrombectomy, pt refused HD today,afebrile Exam/Review of Systems Vital Signs Vitals Vital Signs Date Time Temp Pulse Resp B/P Pulse Ox O2 Delivery O2 Flow Rate FiO2 07/23/16 08:26 98.6 89 16 109/76 100 07/21/16 16:00 Room Air Intake and Output 07/22/16 07/22/16 07/23/16 15:00 23:00 07:00 Intake Total 1340 ml 240 ml Output Total 1000 ml Balance 340 ml 240 ml Exam GENERAL: Awake, alert, in no distress. HEENT: Normal. Oropharynx clear. NECK: Supple, no JVD, no lymphadenopathy. LUNGS: Clear to auscultation. No crackles, no wheezes. HEART: S1, S2, with regular rate and rhythm, no murmur. ABDOMEN: Soft, nontender, nondistended. Bowel sounds are present. EXTREMITIES: No clubbing, cyanosis, edema. NEUROLOGICAL: Nonfocal, intact. PSYCHIATRIC: Appropriate affect and mood. SKIN: Left upper extremity AV fistula in place. clotted Results Result Diagram: 07/23/1652607/23/16526 Results 24 hrs Laboratory Tests Test 07/23/16 05:27 Activated Partial Thromboplast Time 28.1 Anion Gap 20 H Basophils # 0.0 Basophils % 0.3 Blood Urea Nitrogen 43 #H Calcium Level 9.0 Carbon Dioxide Level 27 Chloride Level 95 L Creatinine 7.36 #H Eosinophils # 0.2 Eosinophils % 2.3 Glucose Level 86 Hematocrit 29.1 L Hemoglobin 10.0 L INR International Normalized Ratio 1.00 Lymphocytes # 2.2 Lymphocytes % 22.5 Mean Corpuscular Hemoglobin 33.1 H Mean Corpuscular Hemoglobin Concent 34.5 Mean Corpuscular Volume 96.0 Mean Platelet Volume 7.9 Monocytes # 0.6 Monocytes % 5.6 Neutrophils # 6.8 Neutrophils % 69.3 Nucleated Red Blood Cells # 0.0 Nucleated Red Blood Cells % 0.0 Platelet Count 247 Potassium Level 4.4 Prothrombin Time 13.2 Prothrombin Time Ratio 1.0 Red Blood Count 3.03 L Red Cell Distribution Width 13.7 Sodium Level 138 White Blood Count 9.8 Medications Medications Current Medications Ondansetron HCl (Zofran Inj) 4 mg Q6H PRN IV NAUSEA AND/OR VOMITING; Start 04/26 at 15:00 Acetaminophen (Tylenol Tab) 650 mg Q6H PRN PO PAIN LEVEL 1-3 OR FEVER; Start at 15:00 Morphine Sulfate (morphine) 2 mg Q4H PRN IV SEVERE PAIN LEVEL 7-10; Start 07/21 at 15:00 Famotidine (Pepcid) 20 mg DAILY PO Last administered on 07/22/16 08:35; Admin Dose 20 MG; Start 07/21/16 at 21:00 Heparin Sodium (Porcine) (Heparin (5000 Units/0.5 ml)) 5,000 unit Q12 SC Last administered on 07/22/16 20:40; Admin Dose 5,000 UNIT; Start 07/21/16 at 21:00 Cinacalcet (Sensipar) 30 mg DAILY PO Last administered on 07/22/16 08:35; Admin Dose 30 MG; Start 07/22/16 at 09:00 Levothyroxine Sodium (Synthroid) 137 mcg DAILY@06 PO Last administered on 05:18; Admin Dose 137 MCG; Start 07/23/16 at 06:00 STANLEY WORKMAN MD Jul 23, 2016 14:31
--- NOTE | 2016-07-23 15:52 | PN ---
Date/Time of Note Date/Time of Note DATE: 07/23/16 TIME: 15:46 Assessment/Plan VTE Prophylaxis VTE Prophylaxis Intervention: heparin Lines/Catheters IV Catheter Type (from Nrs): Saline Lock Urinary Cath still in place: No Assessment/Plan Chief Complaint/Hosp Course Assessment/Plan: 41 yo female with a past medical history ESRD on HD, hypothyroidism who came in for clotted fistula. 1. Clotted AV fistula - jordan placed, has received HD this admission - awaiting, thrombectomy today 07/23/2016 - f/u renal and vascular surgery rec's 2. ESRD on HD - jordan placed, dialysis as per nephro 3. Anemia of chronic kidney disease - continue with epogen 4. Hypothyroidism - elevated to 25 TSH - Levoxyl increased to 138 mcg by endo team. - continue with synthroid, f/u endo rec's 5. Leukocytosis - reactive - resolved now - monitor trend 6. GI ppx - pepcid po 7. DVT ppx - heparin Problems: Subjective 24 Hr Interval Summary Free Text/Dictation Pt refused HD today, awaiting declot procedure for later today. Exam/Review of Systems Vital Signs Vitals Vital Signs Date Time Temp Pulse Resp B/P Pulse Ox O2 Delivery O2 Flow Rate FiO2 07/23/16 08:26 98.6 89 16 109/76 100 07/21/16 16:00 Room Air Intake and Output 07/22/16 07/22/16 07/23/16 15:00 23:00 07:00 Intake Total 1340 ml 240 ml Output Total 1000 ml Balance 340 ml 240 ml Exam Gen Fatou: NAD, AAOx4 HEENT: NC/AT, PERRLA, EOMI NECK: supple, no thyromegaly THORAX: symmetrical, no obvious deformities CV: S1S2, RRR, no M/G/R Lungs: CTAB no W/C/R/R Abd: soft, NT/ND, +BS, no rebound, no guarding, neg HSM EXT: no edema, no ecchymosis, no clubbing, FROM, LUE extremity no bruit/thrill identified, jordan placed right groin Neuro: CN II-XII grossly intact, no focal deficits Psych: good mentation, alert and oriented, good mood and affect Skin: C/D/I Results Result Diagram: 07/23/1652607/23/16526 Results 24 hrs Laboratory Tests Test 07/23/16 05:27 Activated Partial Thromboplast Time 28.1 Anion Gap 20 H Basophils # 0.0 Basophils % 0.3 Blood Urea Nitrogen 43 #H Calcium Level 9.0 Carbon Dioxide Level 27 Chloride Level 95 L Creatinine 7.36 #H Eosinophils # 0.2 Eosinophils % 2.3 Glucose Level 86 Hematocrit 29.1 L Hemoglobin 10.0 L INR International Normalized Ratio 1.00 Lymphocytes # 2.2 Lymphocytes % 22.5 Mean Corpuscular Hemoglobin 33.1 H Mean Corpuscular Hemoglobin Concent 34.5 Mean Corpuscular Volume 96.0 Mean Platelet Volume 7.9 Monocytes # 0.6 Monocytes % 5.6 Neutrophils # 6.8 Neutrophils % 69.3 Nucleated Red Blood Cells # 0.0 Nucleated Red Blood Cells % 0.0 Platelet Count 247 Potassium Level 4.4 Prothrombin Time 13.2 Prothrombin Time Ratio 1.0 Red Blood Count 3.03 L Red Cell Distribution Width 13.7 Sodium Level 138 White Blood Count 9.8 Medications Medications Current Medications Ondansetron HCl (Zofran Inj) 4 mg Q6H PRN IV NAUSEA AND/OR VOMITING; Start 04/26 at 15:00 Acetaminophen (Tylenol Tab) 650 mg Q6H PRN PO PAIN LEVEL 1-3 OR FEVER; Start at 15:00 Morphine Sulfate (morphine) 2 mg Q4H PRN IV SEVERE PAIN LEVEL 7-10; Start 07/21 at 15:00 Famotidine (Pepcid) 20 mg DAILY PO Last administered on 07/22/16 08:35; Admin Dose 20 MG; Start 07/21/16 at 21:00 Heparin Sodium (Porcine) (Heparin (5000 Units/0.5 ml)) 5,000 unit Q12 SC Last administered on 07/22/16 20:40; Admin Dose 5,000 UNIT; Start 07/21/16 at 21:00 Cinacalcet (Sensipar) 30 mg DAILY PO Last administered on 07/22/16 08:35; Admin Dose 30 MG; Start 07/22/16 at 09:00 Levothyroxine Sodium (Synthroid) 137 mcg DAILY@06 PO Last administered on 05:18; Admin Dose 137 MCG; Start 07/23/16 at 06:00 MATT LOMELI Jul 23, 2016 15:52
[2016-07-23] MEDS ORDERED: BUPIVACAINE 0.25% (MPF) 30 ML INJ ONE (18:07)
[2016-07-23] MEDS ORDERED: LIDOCAINE 1% (STERILE-PAK) 30 ML INJ ONE (18:07)
[2016-07-23] MEDS ORDERED: GELATIN SIZE 100 SPONGE ONE (18:07)
[2016-07-23] MEDS ORDERED: HEPARIN 1000 UNITS/ML 10 ML INJ ONE (18:07)
[2016-07-23] MEDS ORDERED: POLYMYXIN/BACITRACIN 1L IRRIG ONE (18:08)
[2016-07-23] MEDS ORDERED: THROMBIN 5000 UNIT VIAL ONE (18:08)
[2016-07-23] MEDS ORDERED: PROPOFOL 20 ML ONE (18:22)
[2016-07-23] MEDS ORDERED: FENTAnyl 50 MCG/ML VIAL ONE (18:22)
[2016-07-23] MEDS ORDERED: VANCOMYCIN 1 GM INJ ONE (18:45)
[2016-07-23] MEDS ORDERED: VANCOMYCIN 1 GM in NS 250 ML IVPB SCH (19:00)
[2016-07-23] MEDS ORDERED: IOHEXOL 300MG/ML 30 ML BTL ONE (19:05)
--- NOTE | 2016-07-23 19:29 | OPPN ---
Date/Time of Note Date/Time of Note DATE: 07/23/16 TIME: 19:28 Operative/Procedure Note Pre-Operative Diagnosis clotted LUE AVG Post-Operative Diagnosis same Procedure Thrombectomy LUE AVF Surgeon: THEO BANKS MD Implants/Grafts: Not applicable Estimated blood loss: minimal Specimens: Not Applicable Complications: None Anesthesia type: THEO ALCALA MD Jul 23, 2016 19:29
[2016-07-23] MEDS ORDERED: DIPHENHYDRAMINE 50 MG INJ ONE (19:50)
[2016-07-23] MEDS ORDERED: DIPHENHYDRAMINE 50 MG INJ IV ONE (20:00)
--- NOTE | 2016-07-23 23:05 | OPR ---
DATE OF OPERATION: PREOPERATIVE DIAGNOSIS: Clotted left upper extremity arteriovenous graft. POSTOPERATIVE DIAGNOSIS: Clotted left upper extremity arteriovenous graft. OPERATION PERFORMED: 1. Thrombectomy, left upper extremity arteriovenous graft. 2. Left upper extremity fistulogram. 3. Left upper extremity venogram. 4. Central venogram. 5. Angioplasty, left basilic vein, 5 x 40 mm balloon. SURGEON: Theo Askew MD ANESTHESIA: Local plus IV sedation. CONSENT: Risks, benefits, complications, alternative therapies explained to the patient and the [facility] gino. Consent obtained. OPERATIVE TECHNIQUE: The patient was placed in supine position, prepped, and draped in usual steril e fashion. Lidocaine 1% was used throughout the operation for local anesthesia. I made a 1 cm inci rosario over the mid aspect of the graft. Graft was identified. Vesseloops were passed around it. It was then opened in a horizontal fashion. Thrombectomy of the arterial limb of the graft was perfor med using a 4-[place] Cassie catheter. I could not advance the Cassie through the arteriovenous an astomosis. Venogram was done, which showed a complete obstruction of the venous anastomosis. Guide wire was passed all the way up to anastomosis, which was then angioplastied very gently to open up t he passageway. However, we could not advance the guidewire completely into the anastomosis using mu ltiple different techniques. Both limbs of the graft were then irrigated using heparinized saline s olution. Graft was closed using 6-0 Prolene in continuous fashion. The wound was then irrigated an d closed in 2 layers of 3-0 Vicryl suture for the deep and 3-0 Vicryl suture for running subcuticula r skin closure. The patient tolerated the procedure well. Dictated By: THEO ASKEW MD FM/NTS Conf#: [id number] DID#: [id number] CC: WAYNE STARR MD;*EndCC*
[2016-07-24] VITALS (10 sets, daily range): BP systolic 87–121; BP diastolic 42–87; PULSE 79–95; RESP 16–19
[2016-07-24] MEDS: LEVOTHYROXINE 137 MCG TAB PO SCH (05:15)
[2016-07-24 05:56] LABS: EOSINOPHILS # 0.1 10^3/ul (0.0-0.5); HEMOGLOBIN 10.3 g/dl (12.0-16.0); LYMPHOCYTES # 1.4 10^3/ul (0.8-2.9); LYMPHOCYTES % 12.4 % (15.0-51.0); MEAN CORPUSCULAR HEMOGLOBIN 32.7 pg (29.0-33.0); MEAN CORPUSCULAR HGB CONC 34.2 g/dl (32.0-37.0); MEAN CORPUSCULAR VOLUME 95.6 fl (82.0-101.0); MEAN PLATELET VOLUME 8.3 fl (7.4-10.4); MONOCYTE # 0.7 10^3/ul (0.3-0.9); MONOCYTES % 5.9 % (0.0-11.0); NEUTROPHIL # 9.2 10^3/ul (1.6-7.5); NEUTROPHILS % 80.7 % (39.0-77.0); PLATELET COUNT 244 10^3/UL (140-440); RED BLOOD COUNT 3.14 10^6/ul (4.20-5.40); RED CELL DISTRIBUTION WIDTH 13.6 % (11.5-14.5); UNCORRECTED WBC 11.4 10^3/ul (4.8-10.8); WHITE BLOOD COUNT 11.4 10^3/ul (4.8-10.8)
[2016-07-24 06:18] LABS: CONDITION 1
[2016-07-24 06:21] LABS: POTASSIUM 4.3 mmol/L (3.5-5.1)
[2016-07-24 06:24] LABS: CREATININE 9.13 mg/dl (0.44-1.00)
[2016-07-24 06:25] LABS: CALCIUM 9.1 mg/dl (8.4-10.2)
[2016-07-24] MEDS: SEVELAMER 800 MG TAB PO SCH ×3 (09:05→17:35)
[2016-07-24] MEDS: CALCIUM ACETATE 667 MG CAP PO SCH ×3 (09:05→17:35)
[2016-07-24] MEDS: FAMOTIDINE 20 MG TAB PO SCH (09:05)
[2016-07-24] MEDS: CINACALCET 30 MG TAB PO SCH (09:05)
[2016-07-24] MEDS: HEPARIN 5,000 UNIT/0.5 ML SYG SC SCH ×2 (09:06→20:37)
--- NOTE | 2016-07-24 09:40 | RADRPT ---
PROCEDURE: X-ray fluoroscopy guidance CLINICAL INDICATION: Left upper extremity dialysis fistula thrombectomy, fluoroscopic guidance. TECHNIQUE: Fluoroscopic guidance was utilized for an intraoperative procedure. COMPARISON: None available FINDINGS: Fluoroscopic guidance was utilized for and intraoperative procedure. 22 seconds of fluoroscopy time was utilized for the procedure. 13 x-ray images were obtained during the procedure in progress. Imag es demonstrate a large amount of thrombus in the distal aspect of a left upper extremity dialysis fi stula. Potential extravasation of contrast is identified. IMPRESSION: X-ray fluoroscopic guidance utilized for intraoperative procedure. Large amount of thrombus in the distal aspect of the left upper extremity dialysis fistula. Potenti al extravasation of contrast. Please see procedure note for details. RPTAT: AA .Dinesh Oscar MD, Date Time Electronically viewed and signed by .Dinesh Oscar MD, on 07/24/2016 09:40 .P/
--- NOTE | 2016-07-24 13:06 | CONS ---
Date/Time of Note Date/Time of Note DATE: 07/24/16 TIME: 13:03 Assessment/Plan Assessment/Plan Additional Assessment/Plan 1. Clotted left upper extremity AV fistula, missed hemodialysis for today.s/p Unsuccessful declotting 2. No dialysis access is available. 3. End-stage renal disease on hemodialysis. 4. Hypertension. 5. Hypothyroidism. 6. Leukocytosis, reactive. 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 Hd access HD planned for today will follow up pt gest HD in [place] Consultation Date/Type/Reason Admit Date/Time Jul 21, 2016 at 15:51 Initial Consult Date 07/21/2016 Type of Consultation: NEPHROLOGY Reason for Consultation ESRD on HD with clotted AVF Referring Provider: WAYNE STARR MD 24 HR Interval Summary Free Text/Dictation s/p unsuccessful declotting, still has right groin jordan catheter Exam/Review of Systems Vital Signs Vitals Vital Signs Date Time Temp Pulse Resp B/P Pulse Ox O2 Delivery O2 Flow Rate FiO2 07/24/16 08:35 98.4 107 16 102/67 100 07/23/16 20:12 Room Air Intake and Output 07/23/16 07/23/16 07/24/16 15:00 23:00 07:00 Intake Total 350 ml 260 ml Output Total 20 ml Balance 330 ml 260 ml Exam GENERAL: Awake, alert, in no distress. LUNGS: Clear to auscultation. No crackles, no wheezes. HEART: S1, S2, with regular rate and rhythm, no murmur. ABDOMEN: Soft, nontender, nondistended. Bowel sounds are present. EXTREMITIES: No clubbing, cyanosis, edema. SKIN: Left upper extremity AV fistula in place. clotted Results Result Diagram: 07/24/16 0510 07/24/16 0510 Results 24 hrs Laboratory Tests Test 07/24/16 05:10 Anion Gap 23 H Basophils # 0.0 Basophils % 0.0 Blood Urea Nitrogen 57 H Calcium Level 9.1 Carbon Dioxide Level 22 Chloride Level 96 L Creatinine 9.13 H Eosinophils # 0.1 Eosinophils % 1.0 Glucose Level 84 Hematocrit 30.0 L Hemoglobin 10.3 L Lymphocytes # 1.4 Lymphocytes % 12.4 L Mean Corpuscular Hemoglobin 32.7 Mean Corpuscular Hemoglobin Concent 34.2 Mean Corpuscular Volume 95.6 Mean Platelet Volume 8.3 Monocytes # 0.7 Monocytes % 5.9 Neutrophils # 9.2 H Neutrophils % 80.7 H Nucleated Red Blood Cells # 0.0 Nucleated Red Blood Cells % 0.0 Platelet Count 244 Potassium Level 4.3 Red Blood Count 3.14 L Red Cell Distribution Width 13.6 Sodium Level 137 White Blood Count 11.4 H Medications Medications Current Medications Ondansetron HCl (Zofran Inj) 4 mg Q6H PRN IV NAUSEA AND/OR VOMITING; Start 04/26 at 15:00 Acetaminophen (Tylenol Tab) 650 mg Q6H PRN PO PAIN LEVEL 1-3 OR FEVER; Start at 15:00 Morphine Sulfate (morphine) 2 mg Q4H PRN IV SEVERE PAIN LEVEL 7-10; Start 07/21 at 15:00 Famotidine (Pepcid) 20 mg DAILY PO Last administered on 07/24/16 09:05; Admin Dose 20 MG; Start 07/21/16 at 21:00 Heparin Sodium (Porcine) (Heparin (5000 Units/0.5 ml)) 5,000 unit Q12 SC Last administered on 07/24/16 09:06; Admin Dose 5,000 UNIT; Start 07/21/16 at 21:00 Cinacalcet (Sensipar) 30 mg DAILY PO Last administered on 07/24/16 09:05; Admin Dose 30 MG; Start 07/22/16 at 09:00 Levothyroxine Sodium (Synthroid) 137 mcg DAILY@06 PO Last administered on 05:15; Admin Dose 137 MCG; Start 07/23/16 at 06:00 STANLEY WORKMAN MD Jul 24, 2016 13:06
--- NOTE | 2016-07-24 14:49 | PN ---
Date/Time of Note Date/Time of Note DATE: 07/24/16 TIME: 14:47 Assessment/Plan VTE Prophylaxis VTE Prophylaxis Intervention: heparin Lines/Catheters IV Catheter Type (from [facility]): quintoncath Urinary Cath still in place: No Assessment/Plan Chief Complaint/Hosp Course Assessment/Plan: 41 yo female with a past medical history ESRD on HD, hypothyroidism who came in for clotted fistula. 1. Clotted AV fistula - jordan placed, has received HD this admission; attempt at thrombectomy unsuccessful yesterday. - per discussion with renal team, needs perm cath placement - f/u renal and vascular surgery rec's 2. ESRD on HD - jordan placed, dialysis as per nephro 3. Anemia of chronic kidney disease - continue with epogen 4. Hypothyroidism - elevated to 25 TSH - Levoxyl increased to 138 mcg by endo team. - continue with synthroid, f/u endo rec's 5. Leukocytosis - reactive - resolved now - monitor trend 6. GI ppx - pepcid po 7. DVT ppx - heparin Problems: Subjective 24 Hr Interval Summary Free Text/Dictation Pt wanting to go home, not able to declot fistula completely yesterday. Exam/Review of Systems Vital Signs Vitals Vital Signs Date Time Temp Pulse Resp B/P Pulse Ox O2 Delivery O2 Flow Rate FiO2 07/24/16 13:15 95 07/24/16 11:45 15 07/24/16 08:35 98.4 102/67 100 07/23/16 20:12 Room Air Intake and Output 07/23/16 07/23/16 07/24/16 15:00 23:00 07:00 Intake Total 350 ml 260 ml Output Total 20 ml Balance 330 ml 260 ml Exam Gen Fatou: NAD, AAOx4 HEENT: NC/AT, PERRLA, EOMI NECK: supple, no thyromegaly THORAX: symmetrical, no obvious deformities CV: S1S2, RRR, no M/G/R Lungs: CTAB no W/C/R/R Abd: soft, NT/ND, +BS, no rebound, no guarding, neg HSM EXT: no edema, no ecchymosis, no clubbing, FROM, LUE extremity no bruit/thrill identified, jordan placed right groin Neuro: CN II-XII grossly intact, no focal deficits Psych: good mentation, alert and oriented, good mood and affect Skin: C/D/I Results Result Diagram: 07/24/16 0510 07/24/16 0510 Results 24 hrs Laboratory Tests Test 07/24/16 05:10 Anion Gap 23 H Basophils # 0.0 Basophils % 0.0 Blood Urea Nitrogen 57 H Calcium Level 9.1 Carbon Dioxide Level 22 Chloride Level 96 L Creatinine 9.13 H Eosinophils # 0.1 Eosinophils % 1.0 Glucose Level 84 Hematocrit 30.0 L Hemoglobin 10.3 L Lymphocytes # 1.4 Lymphocytes % 12.4 L Mean Corpuscular Hemoglobin 32.7 Mean Corpuscular Hemoglobin Concent 34.2 Mean Corpuscular Volume 95.6 Mean Platelet Volume 8.3 Monocytes # 0.7 Monocytes % 5.9 Neutrophils # 9.2 H Neutrophils % 80.7 H Nucleated Red Blood Cells # 0.0 Nucleated Red Blood Cells % 0.0 Platelet Count 244 Potassium Level 4.3 Red Blood Count 3.14 L Red Cell Distribution Width 13.6 Sodium Level 137 White Blood Count 11.4 H Medications Medications Current Medications Ondansetron HCl (Zofran Inj) 4 mg Q6H PRN IV NAUSEA AND/OR VOMITING; Start 04/26 at 15:00 Acetaminophen (Tylenol Tab) 650 mg Q6H PRN PO PAIN LEVEL 1-3 OR FEVER; Start at 15:00 Morphine Sulfate (morphine) 2 mg Q4H PRN IV SEVERE PAIN LEVEL 7-10; Start 07/21 at 15:00 Famotidine (Pepcid) 20 mg DAILY PO Last administered on 07/24/16 09:05; Admin Dose 20 MG; Start 07/21/16 at 21:00 Heparin Sodium (Porcine) (Heparin (5000 Units/0.5 ml)) 5,000 unit Q12 SC Last administered on 07/24/16 09:06; Admin Dose 5,000 UNIT; Start 07/21/16 at 21:00 Cinacalcet (Sensipar) 30 mg DAILY PO Last administered on 07/24/16 09:05; Admin Dose 30 MG; Start 07/22/16 at 09:00 Levothyroxine Sodium (Synthroid) 137 mcg DAILY@06 PO Last administered on 05:15; Admin Dose 137 MCG; Start 07/23/16 at 06:00 MATT LOMELI Jul 24, 2016 14:49
[2016-07-24] MEDS ORDERED: HEPARIN 1000 UNITS/NS (A-LINE) 1,000 ML ONE (17:09)
[2016-07-24] MEDS ORDERED: LIDOCAINE 1% (MDV) 20 ML INJ ONE ×2 (17:09→17:25)
[2016-07-24] MEDS ORDERED: IODIXANOL LOCM 50 ML BTL ONE (17:09)
[2016-07-24] MEDS ORDERED: HEPARIN 1000 UNITS/ML 10 ML INJ ONE (17:10)
[2016-07-24] MEDS ORDERED: SOD CHLORIDE 0.9% 500 ML ONE (17:26)
--- NOTE | 2016-07-24 18:20 | RADRPT ---
PROCEDURE: XR Chest. CLINICAL INDICATION: Central line placement TECHNIQUE: Single portable view of the chest was obtained COMPARISON: 07/21/2016 FINDINGS: There is a new right-sided Perma-Cath in place with its tip overlying the upper to mid right atrium. The heart, mediastinum, and lungs are unchanged. There is no focal infiltrate. There is no pneumothorax. RPTAT:AA IMPRESSION: New right-sided Perma-Cath in place with no evidence of pneumothorax. .Dariel Carroll MD, Date Time Electronically viewed and signed by .Dariel Carroll MD, on 07/24/2016 18:20 .S/
--- NOTE | 2016-07-24 21:19 | OPR ---
DATE OF OPERATION: PREOPERATIVE DIAGNOSIS: Renal failure. POSTOPERATIVE DIAGNOSIS: Renal failure. OPERATION PERFORMED: 1. Right internal jugular vein tunneled hemodialysis catheter placement. 2. Superior venacavogram. 3. Catheter introduction into superior vena cava. 4. Interpretation and supervision of the superior venacavogram. 5. Ultrasound guidance into the central vein. 6. Fluoroscopy. SURGEON: Theo Askew MD ANESTHESIA: Local. CONSENT: Risks, benefits, complications, alternative therapies explained to the patient and the [facility]. Consent obtained. OPERATIVE TECHNIQUE: The patient was placed in supine position, prepped and draped in usual sterile fashion. Under ultrasonic guidance, access was gained in the right internal jugular vein. Guidewi re was advanced through without any difficulty. Subcutaneous tissues were dilated. A 19 cm tunnele d hemodialysis catheter was brought into the subcutaneous tunnel, advanced into the right internal j ugular vein and superior vena cava, all under fluoroscopic guidance. The tip was placed at the junc tion of the superior vena cava and right atrium. Contrast venography was done, which showed no evid ence of any extravasation or bleeding. Both ports of the catheter were aspirated and injected using heparinized saline solution. The catheter was secured to skin using 2-0 nylon sutures. The neck s ite and the exit site were closed using a single 3-0 Vicryl suture in interrupted fashion. The dwayne ent tolerated the procedure well. Dictated By: THEO ASKEW MD FM/VIRAJ Conf#: [id number] DID#: [id number] CC: WAYNE STARR MD;*EndCC*
[2016-07-25] MEDS: LEVOTHYROXINE 137 MCG TAB PO SCH (06:19)
[2016-07-25 06:29] LABS: POTASSIUM 4.4 mmol/L (3.5-5.1)
[2016-07-25 06:32] LABS: CREATININE 7.51 mg/dl (0.44-1.00)
[2016-07-25 06:33] LABS: CALCIUM 9.2 mg/dl (8.4-10.2)
[2016-07-25 06:42] LABS: BASOPHILS % 0.3 % (0.0-2.0); EOSINOPHILS # 0.2 10^3/ul (0.0-0.5); HEMATOCRIT 27.5 % (37.0-47.0); HEMOGLOBIN 9.3 g/dl (12.0-16.0); LYMPHOCYTES # 1.7 10^3/ul (0.8-2.9); LYMPHOCYTES % 22.4 % (15.0-51.0); MEAN CORPUSCULAR HEMOGLOBIN 32.5 pg (29.0-33.0); MEAN CORPUSCULAR HGB CONC 33.8 g/dl (32.0-37.0); MEAN CORPUSCULAR VOLUME 96.1 fl (82.0-101.0); MEAN PLATELET VOLUME 8.3 fl (7.4-10.4); MONOCYTE # 0.5 10^3/ul (0.3-0.9); NEUTROPHIL # 5.2 10^3/ul (1.6-7.5); NEUTROPHILS % 67.3 % (39.0-77.0); PLATELET COUNT 190 10^3/UL (140-440); RED BLOOD COUNT 2.86 10^6/ul (4.20-5.40); RED CELL DISTRIBUTION WIDTH 13.6 % (11.5-14.5); UNCORRECTED WBC 7.7 10^3/ul (4.8-10.8); WHITE BLOOD COUNT 7.7 10^3/ul (4.8-10.8)
[2016-07-25 07:05] LABS: CONDITION 1
[2016-07-25 08:00] VITALS: BP 119/83; RESP 18
[2016-07-25] MEDS: FAMOTIDINE 20 MG TAB PO SCH (08:19)
[2016-07-25] MEDS: CALCIUM ACETATE 667 MG CAP PO SCH ×2 (08:19→11:52)
[2016-07-25] MEDS: CINACALCET 30 MG TAB PO SCH (08:19)
[2016-07-25] MEDS: SEVELAMER 800 MG TAB PO SCH ×2 (08:19→11:52)
[2016-07-25] MEDS: HEPARIN 5,000 UNIT/0.5 ML SYG SC SCH (08:21)
--- NOTE | 2016-07-25 12:13 | CONS ---
Date/Time of Note Date/Time of Note DATE: 07/25/16 TIME: 12:11 Assessment/Plan Assessment/Plan Additional Assessment/Plan 1. Clotted left upper extremity AV fistula, missed hemodialysis for today.s/p Unsuccessful declotting, now with permacath 2. No dialysis access is available. 3. End-stage renal disease on hemodialysis.on HD TTS 4. Hypertension. 5. Hypothyroidism. 6. Leukocytosis, reactive. PLAN: s/p Unsuccessful declottiing of AVF,s/p HD yesterday s/p permacath placement, Groin jordan has been discontinued will follow up Consultation Date/Type/Reason Admit Date/Time Jul 21, 2016 at 15:51 Initial Consult Date 07/21/2016 Type of Consultation: NEPHROLOGY Referring Provider: WAYNE STARR MD 24 HR Interval Summary Free Text/Dictation pt has a permacath, groin catheter has been discontinued Exam/Review of Systems Vital Signs Vitals Vital Signs Date Time Temp Pulse Resp B/P Pulse Ox O2 Delivery O2 Flow Rate FiO2 07/25/16 08:00 98.6 100 18 119/83 98 07/23/16 20:12 Room Air Intake and Output 07/24/16 07/24/16 07/25/16 15:00 23:00 07:00 Intake Total 500 ml 880 ml 850 ml Output Total 1000 ml Balance -500 ml 880 ml 850 ml Results Result Diagram: 07/25/16 0545 07/25/16 0545 Results 24 hrs Laboratory Tests Test 07/25/16 05:45 Anion Gap 19 H Basophils # 0.0 Basophils % 0.3 Blood Urea Nitrogen 39 #H Calcium Level 9.2 Carbon Dioxide Level 28 Chloride Level 96 L Creatinine 7.51 H Eosinophils # 0.2 Eosinophils % 3.0 Glucose Level 96 Hematocrit 27.5 L Hemoglobin 9.3 L Lymphocytes # 1.7 Lymphocytes % 22.4 Mean Corpuscular Hemoglobin 32.5 Mean Corpuscular Hemoglobin Concent 33.8 Mean Corpuscular Volume 96.1 Mean Platelet Volume 8.3 Monocytes # 0.5 Monocytes % 7.0 Neutrophils # 5.2 Neutrophils % 67.3 Nucleated Red Blood Cells # 0.0 Nucleated Red Blood Cells % 0.0 Platelet Count 190 # Potassium Level 4.4 Red Blood Count 2.86 L Red Cell Distribution Width 13.6 Sodium Level 139 White Blood Count 7.7 # Medications Medications Current Medications Ondansetron HCl (Zofran Inj) 4 mg Q6H PRN IV NAUSEA AND/OR VOMITING; Start 04/26 at 15:00 Acetaminophen (Tylenol Tab) 650 mg Q6H PRN PO PAIN LEVEL 1-3 OR FEVER; Start at 15:00 Morphine Sulfate (morphine) 2 mg Q4H PRN IV SEVERE PAIN LEVEL 7-10; Start 07/21 at 15:00 Famotidine (Pepcid) 20 mg DAILY PO Last administered on 07/25/16 08:19; Admin Dose 20 MG; Start 07/21/16 at 21:00 Heparin Sodium (Porcine) (Heparin (5000 Units/0.5 ml)) 5,000 unit Q12 SC Last administered on 07/25/16 08:21; Admin Dose 5,000 UNIT; Start 07/21/16 at 21:00 Cinacalcet (Sensipar) 30 mg DAILY PO Last administered on 07/25/16 08:19; Admin Dose 30 MG; Start 07/22/16 at 09:00 Levothyroxine Sodium (Synthroid) 137 mcg DAILY@06 PO Last administered on 06:19; Admin Dose 137 MCG; Start 07/23/16 at 06:00 STANLEY WORKMAN MD Jul 25, 2016 12:13
--- NOTE | 2016-07-25 15:10 | PDOCDIS ---
Discharge Instructions CONDITION Patient Condition: Stable HOME CARE INSTRUCTIONS: Special Diet: renal ACTIVITY: Activity Restrictions: Slowly Increase Activity FOLLOW UP/APPOINTMENTS Appointments Please take your medications as prescribed, see your doctor in the clinic in 1 week. MATT LOMELI Jul 25, 2016 15:10
[2016-07-25] MEDS ORDERED: LEVO137T24 PO (15:11)
--- NOTE | 2016-07-25 15:42 | DS ---
DATE OF ADMISSION: 07/21/2016 DATE OF DISCHARGE: 07/25/2016 A 41-year-old female originally admitted on 07/21/2016, being discharged home on 07/25/2016. Patient came in for a clotted AV fistula. She was admitted and seen by vascular surgery team and renal team and endocrinology team during this hospital stay. In the meantime, a Carlitos catheter was placed and the patient received hemodialysis per renal recommendations. There was an attempt at a thrombectomy for the clotted AV fistula; however, that was unsuccessful and eventually a PermCath was placed 24 hours prior to admission. The patient tolerated both procedures well. She was found with some hypothyroidism, and her Levoxyl medicine was increased by endocrinology team recommendations. She was able to ambulate and tolerate a p.o. diet. Her leukocytosis was resolved by the time of discharge. There were no signs of any fevers. Cultures were negative and she will be discharged home today in improved condition. She will need to continue outpatient dialysis; however, as regularly scheduled and apparently she gets her hemodialysis admission here also so that has been set up and she will be discharged home today in improved condition. DISCHARGE MEDICATIONS: She will be sent with the following medications: 1. Levoxyl 137 mcg daily. 2. Calcium acetate 667 mg with meals. 3. Sensipar 30 mg daily. 4. Renagel 800 mg with meals. Again, she will continue dialysis as an outpatient and follow up with the primary care doctor as outpatient in next 1 to 2 weeks. FINAL DIAGNOSES: 1. Clotted AV fistula. Unsuccessful attempt at thrombectomy this admission, now with PermCath placement. 2. End-stage renal disease on dialysis. 3. Anemia of chronic disease, on Epogen. 4. Hypothyroidism. 5. Leukocytosis, resolved. Time spent discharging patient 40 minutes. Dictated By: MATT TIDWELL Conf#: [id number] DID#: [id number]
== END 2016-07-25 16:23 | disposition home or self-care (01) | DRG 252 ==
LOC: E/R 10:55 → PP2 15:51
PROVIDERS: ADMIT Student in an Organized Health Care Education/Training Program; ATTEND Student in an Organized Health Care Education/Training Program
PROC: 06HM33Z Insertion of Infusion Device into Right Femoral Vein, Percutaneous Approach (ICD-10-PCS; 2016-07-22)
PROC: 5A1D60Z (ICD-10-PCS; 2016-07-22)
PROC: B51W1ZZ Fluoroscopy of Dialysis Shunt/Fistula using Low Osmolar Contrast (ICD-10-PCS; 2016-07-23)
PROC: 057C0ZZ Dilation of Left Basilic Vein, Open Approach (ICD-10-PCS; principal; 2016-07-23 17:00)
PROC: 02HV33Z Insertion of Infusion Device into Superior Vena Cava, Percutaneous Approach (ICD-10-PCS; 2016-07-24)
PROC: B518ZZA Fluoroscopy of Superior Vena Cava, Guidance (ICD-10-PCS; 2016-07-24)
PROC: B548ZZA Ultrasonography of Superior Vena Cava, Guidance (ICD-10-PCS; 2016-07-24)
DX: T82.590A Other mechanical complication of surgically created arteriovenous fistula, initial encounter (principal); N18.6 End stage renal disease; E11.22 Type 2 diabetes mellitus with diabetic chronic kidney disease; I12.0 Hypertensive chronic kidney disease with stage 5 chronic kidney disease or end stage renal disease; Z99.2 Dependence on renal dialysis; E03.9 Hypothyroidism, unspecified; D63.1 Anemia in chronic kidney disease; E78.5 Hyperlipidemia, unspecified; D72.829 Elevated white blood cell count, unspecified; Y84.1 Kidney dialysis as the cause of abnormal reaction of the patient, or of later complication, without mention of misadventure at the time of the procedure; Z88.0 Allergy status to penicillin
CPT/HCPCS: 71010; 77001; 80048; 80061; 83036; 83735; 84436; 84443; 84479; 85025; 85610; 85730; 87081; 90935; 93005; C1725; C1750; C1752; C1769; J1200; J1644; J3010; J3370; J7040; Q9967

== ENCOUNTER 2016-08-02 13:35 | Outpatient (CLI) | payer OTHER ==
[~2016-08-02] VITALS: Ht 149.9 cm; Wt 45.5 kg
[~2016-08-02 13:35] MED LIST changes: +LEVO137T24 PO; -SYN112 PO
[2016-08-02 13:48] VITALS: BP 104/57; PULSE 50; RESP 18; Ht 149.9 cm; Wt 45.5 kg
--- NOTE | 2016-08-02 14:15 | PN ---
Date/Time of Note Date/Time of Note DATE: 08/02/16 TIME: 14:14 Outpatient Progress Note Chief Complaint Malfunction AV fistula/hypertension/chronic renal failure/anemia/hypothyroidism HPI Malfunction of AV fistula/patient had malfunction of AV fistula, patient had surgery, patient fistula working well Hypertension/no headache or dizziness, no lightheadedness, no local focal weakness, Chronic renal failure/patient has chronic renal failure, on hemodialysis, patient has a also fistula on the left arm, and the excess in the right side of the chest, Anemia/no hematemesis or melena, no bruises, ecchymosis, no bleeding, Hypothyroidism/patient has thyroid surgery 2 years ago, patient on Synthroid, no weakness tiredness or puffiness of ice,, Review of Systems Const: No Fever, no chills, no Wt. loss, no Fatigue, normal appetite, no diaphoresis. Eyes: No pain, no discharge, no redness, no visual change, no foreign body. ENT: No pain, no bleeding, no congestion, no sore throat, no dysphagia, no discharge or rhinitis. Lymph: No adenopathy, no tender nodes, no lymphedema. Resp: No SOB, no cough, no sputum, no wheezing, no chest pain. CV: No chest pain, no palpitaions, no DOWNS, no PND, no edema. Patient has access on the right side of the chest, for hemodialysis GI: Normal appetite, no pain, no nausea, no vomiting, no diarrhea, no blood, no constipation. : No frequency, no urgency, no dysuria, no hematuria, no flank pain, no discharge, no bleeding. Musc: No bone/joint pain, no back pain, no neck pain, no knee pain, no restricted ROM. Skin: No rash, no skin lesions, no erythema, no laceration, no bruising, no pruritus. Neuro: No POLANCO, no dizziness, no syncope, no seizure, no focal-weakness. Endo: No polyuria, no polydypsia, no dry-skin, no temp-intolerance. Psych: No hallucinations, no depression, no anxiety, no suicidal ideation. Ext: No edema, no pain, no ulcer, no weakness. Patient has left arm AV fistula, Physical Exam Vital Signs Date Time Temp Pulse Resp B/P Pulse Ox O2 Delivery O2 Flow Rate FiO2 2/23/17 13:48 98.7 50 18 104/57 100 General Appearance: A 41 year-old female who appears well-developed, well- nourished, in no acute distress. HEENT: Head normocephalic, atraumatic. Pupils equal, round, reactive to light and accommodate. Sclerae are no jaundice. Nasal turbinates pink without erythema or nasal discharge. Mucous membranes pink and moist without lesions. Oropharynx clear without any exudate or discharge. NECK: Supple. Trachea midline, No thyromegaly, No cervical lymphadenopathy, No mass, No carotid bruits, No JVD, Carotid pulses 2+ bilaterally. PULMONARY: Clear to auscultaion bilaterally, No retractions, Chest expansion symmetric bilaterally, no rales, no ronchi, no dulness on percussion. CARDIAC: Normal SI and S2, Regular rate and rythm, no murmur, gallop, or rub. Patient has access for hemodialysis on right side of the chest, GASTROINTESTINAL: Abdomen is soft, non-tender, Non Rigid, No distention, Positive bowel sounds x4 quadrants, Liver normal. SKIN: Warm, dry, no rash, no bruise, no echmosis. EXTREMITIES: Bilateral lower extremities normal, no edema, no phlabitus, pulse palpable, no contracture. Patient has right upper arm AV fistula, MUSCULOSKELETAL: Spine Normal, Non-tender, Normal range of motion, No swelling, no deformity, no clubbing, or cyanosis, the patient has no edema to bilateral lower extremities, dorsalis pedis pulses palpable bilaterally. NEUROLOGIC: The patient is awake, alert, oriented, responding to yes/no questions appropriately, moving all extremities, cranial nerve intact, normal strenght, normal power, normal coordination, normal gait. Allergies Coded Allergies: Penicillins (Verified Allergy, Severe, 07/10/16) PMH Malfunction of any fistula/hypertension/chronic renal failure/anemia/ hypothyroidism/thyroid surgery thyroidectomy/AV fistula/subclavian line for IV access, for hemodialysis Social Hx No smoking or drinking, Family Hx Noncontributory Assessment/Plan Impression Malfunction of a fistula/hypertension/CRF/anemia/hypothyroidism Plan Patient was recently hospitalized for malfunction of the AV fistula, patient has a now access, for hemodialysis on right side of the chest, Patient continued to be monitored, and continue hemodialysis, Patient advised to follow with the primary care physician, and follow with the vascular surgery, any emergency or primary care physician or call us Patient education done about thyroid problem, and renal failure, Patient has all the medication, Medications Home Meds Active Scripts Levothyroxine Sodium* (Synthroid*) 137 Mcg Tablet, 137 MCG PO DAILY@06, #30 TAB 2 Refills Prov:MATT LOMELI 07/25/16 Reported Medications Sevelamer Hcl* (Renagel*) 800 Mg Tablet, 800 MG PO WITH MEALS, TAB 07/10/16 Calcium Acetate* (Calcium Acetate*) 667 Mg Capsule, 667 MG PO WITH MEALS, #30 CAP 07/10/16 Cinacalcet* (Sensipar*) 30 Mg Tab, 30 MG PO DAILY, TAB 07/10/16 NICK WORKMAN MD Aug 02, 2016 14:14
== END 2016-08-02 16:54 | disposition home or self-care (01) ==
LOC: DCC 13:35
PROVIDERS: ATTEND Internal Medicine
DX: T82.590A Other mechanical complication of surgically created arteriovenous fistula, initial encounter (principal); I12.9 Hypertensive chronic kidney disease with stage 1 through stage 4 chronic kidney disease, or unspecified chronic kidney disease; N18.9 Chronic kidney disease, unspecified; E03.9 Hypothyroidism, unspecified
CPT/HCPCS: G0463

== ENCOUNTER 2016-08-23 13:25 | Outpatient (CLI) | payer OTHER ==
[~2016-08-23] VITALS: Ht 149.9 cm; Wt 45.5 kg
[2016-08-23 13:57] VITALS: BP 94/57; PULSE 95; RESP 18; Ht 149.9 cm; Wt 45.5 kg
--- NOTE | 2016-08-23 15:27 | PN ---
Date/Time of Note Date/Time of Note DATE: 08/23/16 TIME: 15:21 Outpatient Progress Note Chief Complaint Malfunction of AV fistula/hypertension/anemia/CRF/hypothyroidism HPI Malfunction of AV fistula/patient has malfunction of AV fistula, still not working, patient has AV fistula on left upper arm, Hypertension/no headache or dizziness, no nausea or vomiting, no local focal with Ms., blood pressure slightly on the low side, Anemia/no hematemesis of melena, no pain, no bruising or bleeding, CRF/no nausea or vomiting, no pruritus, patient has dialysis access on the right side of the chest wall, Hypothyroidism/No puffiness of eyes, no weakness or tiredness, Review of Systems Const: [No Fever, no chills, no Wt. loss, no Fatigue, normal appetite, no diaphoresis.] Eyes: [No pain, no discharge, no redness, no visual change, no foreign body.] ENT: [No pain, no bleeding, no congestion, no sore throat, no dysphagia, no discharge or rhinitis.] Lymph: [No adenopathy, no tender nodes, no lymphedema.] Resp: [No SOB, no cough, no sputum, no wheezing, no chest pain.] CV: [No chest pain, no palpitaions, no DOWNS, no PND, no edema.] GI: [Normal appetite, no pain, no nausea, no vomiting, no diarrhea, no blood, no constipation.] : [No frequency, no urgency, no dysuria, no hematuria, no flank pain, no discharge, no bleeding.] Musc: [No bone/joint pain, no back pain, no neck pain, no knee pain, no restricted ROM.] Skin: [No rash, no skin lesions, no erythema, no laceration, no bruising, no pruritus.] Neuro: [No POLANCO, no dizziness, no syncope, no seizure, no focal-weakness.] Endo: [No polyuria, no polydypsia, no dry-skin, no temp-intolerance.] Psych: [No hallucinations, no depression, no anxiety, no suicidal ideation.] Ext: [No edema, no pain, no ulcer, no weakness left upper extremity hemodialysis access/AV fistula clotted,.] Physical Exam Vital Signs Date Time Temp Pulse Resp B/P Pulse Ox O2 Delivery O2 Flow Rate FiO2 08/23/16 13:57 98.4 95 18 94/57 96 Room Air General Appearance: A [A 41 year-old female [who appears well-developed, well- nourished, in no acute distress.] HEENT: [Head normocephalic, atraumatic. Pupils equal, round, reactive to light and accommodate. Sclerae are no jaundice. Nasal turbinates pink without erythema or nasal discharge. Mucous membranes pink and moist without lesions. Oropharynx clear without any exudate or discharge.] NECK: [Supple. Trachea midline, No thyromegaly, No cervical lymphadenopathy, No mass, No carotid bruits, No JVD, Carotid pulses 2+ bilaterally.] PULMONARY: [Clear to auscultaion bilaterally, No retractions, Chest expansion symmetric bilaterally, no rales, no ronchi, no dulness on percussion.] CARDIAC: [Normal SI and S2, Regular rate and rythm, no murmur, gallop, or rub.] GASTROINTESTINAL: [Abdomen is soft, non-tender, Non Rigid, No distention, Positive bowel sounds x4 quadrants, Liver normal.] SKIN: [Warm, dry, no rash, no bruise, no echmosis.] EXTREMITIES: [Bilateral lower extremities normal, no edema, no phlabitus, pulse palpable, no contracture left upper extremity AV fistula clotted,.] MUSCULOSKELETAL: [Spine Normal, Non-tender, Normal range of motion, No swelling , no deformity, no clubbing, or cyanosis, the patient has no edema to bilateral lower extremities, dorsalis pedis pulses palpable bilaterally.] NEUROLOGIC: [The patient is awake, alert, oriented, responding to yes/no questions appropriately, moving all extremities, cranial nerve intact, normal strenght, normal power, normal coordination, normal gait.] Allergies Coded Allergies: Penicillins (Verified Allergy, Severe, 07/10/16) PMH No change Social Hx No change Family Hx No change Assessment/Plan Impression AV fistula malfunction/hypertension/anemia/CRF/hypotelorism Plan Patient blood pressure slightly on the low side, patient advised to be careful when patient gets up, secondary to postural hypotension and fall, Patient education done, patient follow with the primary care physician and vascular surgeon, Patient has all the medication, will need TSH in few weeks, and CBC CMP, made to prior to surgery, discussed with the patient, Medications Home Meds Active Scripts Levothyroxine Sodium* (Synthroid*) 137 Mcg Tablet, 137 MCG PO DAILY@06, #30 TAB 2 Refills Prov:ADDISON LOMELIDerrell Blackwell 07/25/16 Reported Medications Sevelamer Hcl* (Renagel*) 800 Mg Tablet, 800 MG PO WITH MEALS, TAB 07/10/16 Calcium Acetate* (Calcium Acetate*) 667 Mg Capsule, 667 MG PO WITH MEALS, #30 CAP 07/10/16 Cinacalcet* (Sensipar*) 30 Mg Tab, 30 MG PO DAILY, TAB 07/10/16 NICK WORKMAN MD Aug 23, 2016 15:26
== END 2016-08-23 16:57 | disposition home or self-care (01) ==
LOC: DCC 13:25
PROVIDERS: ATTEND Internal Medicine
DX: T82.31 Breakdown (mechanical) of other vascular grafts (principal); I10 Essential (primary) hypertension; D64.9 Anemia, unspecified; N18.9 Chronic kidney disease, unspecified

== ENCOUNTER 2017-02-21 12:35 | Emergency (ER) | payer OTHER ==
[~2017-02-21] VITALS: Ht 121.9 cm; Wt 45.0 kg
[2017-02-21 12:37] VITALS: Ht 121.9 cm; Wt 45.0 kg
[2017-02-21] MEDS ORDERED: ACETAMINOPHEN 325 MG TAB PO STA (14:48)
[2017-02-21] MEDS ORDERED: VANCOMYCIN 1 GM (PMX) 250 ML IVPB ONE (15:00)
[2017-02-21] MEDS ORDERED: LEVOFLOXACIN 750MG/D5W (PMX) 150 ML IVPB ONE (15:00)
[2017-02-21 15:29] LABS: BASOPHILS % 0.3 % (0.0-2.0); EOSINOPHILS # 0.1 10^3/ul (0.0-0.5); EOSINOPHILS % 0.3 % (0.0-7.0); HEMATOCRIT 31.5 % (37.0-47.0); HEMOGLOBIN 10.3 g/dl (12.0-16.0); LYMPHOCYTES # 1.9 10^3/ul (0.8-2.9); LYMPHOCYTES % 12.8 % (15.0-51.0); MEAN CORPUSCULAR HEMOGLOBIN 31.5 pg (29.0-33.0); MEAN CORPUSCULAR HGB CONC 32.7 g/dl (32.0-37.0); MEAN CORPUSCULAR VOLUME 96.3 fl (82.0-101.0); MEAN PLATELET VOLUME 10.3 fl (7.4-10.4); MONOCYTES % 6.7 % (0.0-11.0); NEUTROPHIL # 11.5 10^3/ul (1.6-7.5); NEUTROPHILS % 79.3 % (39.0-77.0); PLATELET COUNT 243 10^3/UL (140-415); RED BLOOD COUNT 3.27 10^6/ul (4.20-5.40); RED CELL DISTRIBUTION WIDTH 13.8 % (11.5-14.5); WHITE BLOOD COUNT 14.5 10^3/ul (4.8-10.8)
--- NOTE | 2017-02-21 15:37 | RADRPT ---
PROCEDURE: XR Chest. CLINICAL INDICATION: chest pain TECHNIQUE: Single frontal view of the chest was obtained COMPARISON: CR CHEST 07/24/2016 FINDINGS: The heart and mediastinum are within normal limits. There is a right-sided Perma-Cath in place. The lungs are clear. There is no pleural effusion or pneumothorax. RPTAT: AA IMPRESSION: No acute disease. .Dariel Carroll MD, MD Date Time Electronically viewed and signed by .Dariel Carroll MD, on 02/21/2017 15:37 .S/
[2017-02-21 15:43] LABS: INR 1.02; PROTIME 13.4 Sec (12.2-14.2)
[2017-02-21 15:44] LABS: PARTIAL THROMBOPLASTIN TIME 25.2 Sec (25.0-35.0)
--- NOTE | 2017-02-21 15:46 | ERD ---
ER Documentation Chief Complaint Date/Time DATE: 02/21/17 TIME: 15:30 Chief Complaint LEFT FACIAL SWELLING HPI 42-year-old female history of end-stage renal disease on dialysis Saturday/ /Saturday, status post remote thyroidectomy for goiter, presents the ED complaining of a 2 day history of left dental pain and facial swelling. Swelling has actually diminished since yesterday. No dysphagia, dysphonia or odynophagia. No neck pain or swelling. Denies headache, visual changes or eye pain. No chest pain, palpitations or shortness of breath. No fevers or chills. ROS All systems reviewed and are negative except as per history of present illness. Medications Home Meds Active Scripts Acetaminophen* (Tylenol*) 325 Mg Tablet, 2 TAB PO Q6 Y for FEVER, #20 TAB Prov:VIN ALVARADO MD 02/21/17 Tramadol HCl (Tramadol HCl) 50 Mg Tablet, 50 MG PO Q6 Y for PAIN, #14 TAB Prov:VIN ALVARADO MD 02/21/17 Clindamycin Hcl* (Clindamycin Hcl*) 300 Mg Capsule, 300 MG PO QID for 7 Days, CAP Prov:VIN ALVARADO MD 02/21/17 Levothyroxine Sodium* (Synthroid*) 137 Mcg Tablet, 137 MCG PO DAILY@06, #30 TAB 2 Refills Prov:MATT LOMELI 07/25/16 Reported Medications Sevelamer Hcl* (Renagel*) 800 Mg Tablet, 800 MG PO WITH MEALS, TAB 07/10/16 Calcium Acetate* (Calcium Acetate*) 667 Mg Capsule, 667 MG PO WITH MEALS, #30 CAP 07/10/16 Cinacalcet* (Sensipar*) 30 Mg Tab, 30 MG PO DAILY, TAB 07/10/16 Allergies Allergies: Coded Allergies: Penicillins (Verified Allergy, Severe, 07/10/16) PMhx/Soc Reviewed in chart. As per HPI. History of Surgery: Yes (thyroid, chest, hand) Hx Neurological Disorder: No Hx Respiratory Disorders: No Hx Cardiac Disorders: No Hx Psychiatric Problems: No Hx Miscellaneous Medical Probl: Yes (ESRD on dialysis, hypothyroid) Hx Alcohol Use: No Hx Substance Use: No Hx Tobacco Use: No Smoking Status: Never smoker FmHx No stroke or cancer Physical Exam Vitals Vital Signs Date Time Temp Pulse Resp B/P Pulse Ox O2 Delivery O2 Flow Rate FiO2 02/21/17 19:27 98.2 100 18 113/78 100 Room Air 02/21/17 19:12 91 20 108/54 98 Room Air 02/21/17 16:15 98.8 101 18 113/71 100 02/21/17 12:37 100.8 127 19 118/73 99 Physical Exam Const: Alert, NAD Head: Atraumatic Eyes: Normal Conjunctiva. No periorbital swelling. RENE, EOMI. ENT: Left upper facial swelling extending to below the lower eyelid with mild erythema and warmth. No fluctuance or crepitus. Upper rear gum swelling and tenderness. Neck: Full range of motion. No lymphadenopathy or tenderness. Resp: Clear to auscultation bilaterally Cardio: Regular rate and rhythm, no murmurs Abd: Soft, non tender, non distended. Normal bowel sounds Skin: No petechiae or rashes Back: No midline or flank tenderness Ext: No cyanosis, or edema Neur: Awake and alert. No focal deficit. Psych: Normal Mood and Affect Result Diagram: 02/21/17 1500 02/21/17 1500 Results 24 hrs Laboratory Tests Test 02/21/17 15:00 02/21/17 17:25 White Blood Count 14.510^3/ul Red Blood Count 3.2710^6/ul Hemoglobin 10.3g/dl Hematocrit 31.5% Mean Corpuscular Volume 96.3fl Mean Corpuscular Hemoglobin 31.5pg Mean Corpuscular Hemoglobin Concent 32.7g/dl Red Cell Distribution Width 13.8% Platelet Count 76634^3/UL Mean Platelet Volume 10.3fl Neutrophils % 79.3% Lymphocytes % 12.8% Monocytes % 6.7% Eosinophils % 0.3% Basophils % 0.3% Nucleated Red Blood Cells % 0.0/100WBC Neutrophils # 11.510^3/ul Lymphocytes # 1.910^3/ul Monocytes # 1.010^3/ul Eosinophils # 0.110^3/ul Basophils # 0.010^3/ul Nucleated Red Blood Cells # 0.010^3/ul Prothrombin Time 13.4Sec Prothrombin Time Ratio 1.0 INR International Normalized Ratio 1.02 Activated Partial Thromboplast Time 25.2Sec Sodium Level 136mmol/L Potassium Level 4.7mmol/L Chloride Level 97mmol/L Carbon Dioxide Level 29mmol/L Anion Gap 15 Blood Urea Nitrogen 15mg/dl Creatinine 4.21mg/dl Glucose Level 101mg/dl Lactic Acid Level 1.9mmol/L Calcium Level 10.2mg/dl Total Bilirubin 0.3mg/dl Direct Bilirubin 0.00mg/dl Indirect Bilirubin 0.3mg/dl Aspartate Amino Transf (AST/SGOT) 19IU/L Alanine Aminotransferase (ALT/SGPT) 19IU/L Alkaline Phosphatase 141IU/L Troponin I 0.024ng/ml Total Protein 8.4g/dl Albumin 4.5g/dl Globulin 3.90g/dl Albumin/Globulin Ratio 1.15 Urine Color STRAW Urine Clarity CLEAR Urine pH 9.0 Urine Specific [place] 1.005 Urine Ketones NEGATIVEmg/dL Urine Nitrite NEGATIVEmg/dL Urine Bilirubin NEGATIVEmg/dL Urine Urobilinogen NEGATIVEmg/dL Urine Leukocyte Esterase NEGATIVELeu/ul Urine Microscopic RBC 1/HPF Urine Microscopic WBC 1/HPF Urine Squamous Epithelial Cells FEW/HPF Urine Bacteria FEW/HPF Urine Hemoglobin 1+mg/dL Urine Glucose NEGATIVEmg/dL Urine Total Protein NEGATIVEmg/dl Current Medications Medications (Trade) Dose Ordered Sig/Sandor Route PRN Reason Start Time Stop Time Status Last Admin Dose Admin Acetaminophen 650 mg 650 mg ONCE STAT PO 02/21/17 14:48 02/21/17 14:55 DC 02/21/17 15:09 Vancomycin HCl 250 ml @ 125 mls/hr ONCE ONCE IVPB 02/21/17 15:00 02/21/17 16:59 DC 02/21/17 17:13 Levofloxacin/ Dextrose (Levaquin 750 Mg/ D5W 150 ml (Pmx)) 150 ml @ 100 mls/hr ONCE ONCE IVPB 02/21/17 15:00 02/21/17 16:29 DC 02/21/17 15:27 Diphenhydramine HCl (Benadryl) 50 mg ONCE ONCE IV 02/21/17 18:30 02/21/17 18:31 DC 02/21/17 18:34 Methylprednisolone Sodium Succinate (Solu-Medrol) 125 mg ONCE ONCE IV 02/21/17 18:30 02/21/17 18:31 DC 02/21/17 18:34 PROCEDURE: CT facial bones without. CLINICAL INDICATION: Left sided facial swelling TECHNIQUE: A CT of the facial bones was performed on a multidetector CT scanner utilizing high-resolution axial images. Sagittal, coronal, and multiplanar reformatted images were made. The CTDIvol is 29.4 mGy and the DLP is 502.56 mGy-cm. One or more of the following dose reduction techniques were utilized: Automated exposure control, adjustment of the mA and/or kV according to patient size, use of iterative reconstruction technique. COMPARISON: None. FINDINGS: Extensive subcutaneous soft tissue stranding and edema along the left radha mandibular and submandibular regions suggestive of cellulitis. Thickening of the platysma muscle. No focal abnormal fluid collection to suggest abscess. The study is limited due to lack of venous contrast. Radha apical lucency surrounding the left lower second bicuspid ( [employer] numbering system of permanent teeth # 20 ) with dehiscence of the overlying mandibular cortex anteriorly. This may represent a radicular cyst or radha apical abscess. Correlate with dental examination. Scattered nonenlarged cervical lymph nodes. No bulky adenopathy. The orbits, as visualized, appear intact. The overlying soft tissues are grossly unremarkable. Polypoid mucosal thickening within the maxillary sinuses bilaterally. IMPRESSION: 1. Diffuse subcutaneous edema involving the left perimandibular and submandibular soft tissues suggestive of cellulitis. No discrete abscess formation is identified. 2.. The lucency with dehiscence of the overlying mandibular cortex in the left lower second bicuspid. Correlate clinically as source of infection. 3. No other maxillofacial fracture or osseous abnormality. 4. Polypoid mucosal thickening in the maxillary sinuses bilaterally. RPTAT:AAJJ Physician Grey Date Time Electronically viewed and signed by Physician Grey on 02/21/2017 16:49 Procedures/MDM DOCUMENTS REVIEWED: ED nurse no prior records MEDICAL DECISION MAKIN-year-old female history of end-stage renal disease on dialysis Saturday//Saturday, status post remote thyroidectomy for goiter, presents the ED complaining of a 2 day history of left dental pain and facial swelling. Patient with odontogenic infection and facial cellulitis. CT negative for abscess. At 18:30 during the Vancomycin infusion she began c/o pruritis and developed an erythematous rash. No urticaria, SOB or wheezing. Infusion was stopped. IV Benadryl and Solu-Medrol were given with complete resolution. Possible allergic drug reaction vs red man syndrome but prudence dictates avoiding Vancomycin in the future. Stable for discharge with Clindamycin, appropriate analgesics and urgent, outpatient dental follow-up as counseled. Counseled patient regarding diagnostic workup, diagnosis and need for followup. Understands to return to ED if symptoms recur, worsen or any other concerns. Departure Diagnosis: Primary Impression: Facial swelling Additional Impressions: Dental infection Facial cellulitis End stage renal disease on dialysis Drug reaction Encounter type: initial encounter Qualified Code: T88.7XXA - Adverse effect of drug, initial encounter Condition: Stable (With mandatory outpatient follow-up tomorrow) VIN ALVARADO MD Feb 21, 2017 15:46
[2017-02-21 16:11] LABS: ALBUMIN 4.5 g/dl (3.3-4.9); ALBUMIN/GLOBULIN RATIO 1.15; BILIRUBIN,INDIRECT 0.3 mg/dl (0-1.1); BILIRUBIN,TOTAL 0.3 mg/dl (0.2-1.3); CALCIUM 10.2 mg/dl (8.4-10.2); CREATININE 4.21 mg/dl (0.44-1.00); POTASSIUM 4.7 mmol/L (3.5-5.1); TOTAL PROTEIN 8.4 g/dl (6.1-8.1)
[2017-02-21 16:23] LABS: TROPONIN-I 0.024 ng/ml (0.00-0.12)
--- NOTE | 2017-02-21 16:49 | RADRPT ---
PROCEDURE: CT facial bones without. CLINICAL INDICATION: Left sided facial swelling TECHNIQUE: A CT of the facial bones was performed on a multidetector CT scanner utilizing high-res olution axial images. Sagittal, coronal, and multiplanar reformatted images were made. The CTDIvol is 29.4 mGy and the DLP is 502.56 mGy-cm. One or more of the following dose reduction techniques we re utilized: Automated exposure control, adjustment of the mA and/or kV according to patient size, use of iterative reconstruction technique. COMPARISON: None. FINDINGS: Extensive subcutaneous soft tissue stranding and edema along the left damon mandibular and submandibu lar regions suggestive of cellulitis. Thickening of the platysma muscle. No focal abnormal fluid col lection to suggest abscess. The study is limited due to lack of venous contrast. Damon apical lucency surrounding the left lower second bicuspid ( [employer] Dental numbering system of perm anent teeth # 20 ) with dehiscence of the overlying mandibular cortex anteriorly. This may represent a radicular cyst or damon apical abscess. Correlate with dental examination. Scattered nonenlarged c ervical lymph nodes. No bulky adenopathy. The orbits, as visualized, appear intact. The overlying s oft tissues are grossly unremarkable. Polypoid mucosal thickening within the maxillary sinuses bilaterally. IMPRESSION: 1. Diffuse subcutaneous edema involving the left perimandibular and submandibular soft tissues sugge stive of cellulitis. No discrete abscess formation is identified. 2.. The lucency with dehiscence of the overlying mandibular cortex in the left lower second bicuspid . Correlate clinically as source of infection. 3. No other maxillofacial fracture or osseous abnormality. 4. Polypoid mucosal thickening in the maxillary sinuses bilaterally. RPTAT:AAJJ Physician Grey Date Time Electronically viewed and signed by Physician Grey on 02/21/2017 16:49 JENNIFER/
[2017-02-21] MEDS ORDERED: ACET325T33 PO (17:50)
[2017-02-21] MEDS ORDERED: TRAM50TA2 PO (17:50)
[2017-02-21] MEDS ORDERED: CLIN-73 PO (17:50)
[2017-02-21 18:12] LABS: ADD UMIC YES; UR ASCORBIC ACID NEGATIVE (NEGATIVE); UR BACTERIA FEW /HPF (NONE SEEN); UR BILIRUBIN (Dip) NEGATIVE (NEGATIVE); UR BLOOD (Dip) 1+ mg/dL (NEGATIVE); UR CLARITY CLEAR (CLEAR); UR COLOR STRAW (YELLOW); UR GLUCOSE (Dip) NEGATIVE (NEGATIVE); UR KETONES (Dip) NEGATIVE (NEGATIVE); UR LEUKOCYTE ESTERASE (Dip) NEGATIVE Leu/ul (NEGATIVE); UR NITRITE (Dip) NEGATIVE (NEGATIVE); UR RBC 1 /HPF (0-5); UR SPECIFIC GRAVITY (Dip) 1.005 (1.003-1.030); UR SQUAMOUS EPITHELIAL CELL FEW /HPF (FEW); UR TOTAL PROTEIN (Dip) NEGATIVE (NEGATIVE); UR UROBILINOGEN (Dip) NEGATIVE (NEGATIVE)
[2017-02-21] MEDS ORDERED: METHYLPREDNISOLONE 125 MG INJ IV ONE (18:30)
[2017-02-21] MEDS ORDERED: DIPHENHYDRAMINE 50 MG INJ IV ONE (18:30)
[2017-02-21 19:27] VITALS: BP 113/78; PULSE 100; RESP 18; TEMP 98.2
== END 2017-02-21 19:27 | disposition home or self-care (01) ==
LOC: FTE 12:35
DX: K04.7 Periapical abscess without sinus (principal); L03.811 Cellulitis of head [any part, except face]; N18.6 End stage renal disease; E03.9 Hypothyroidism, unspecified; T36.8X5A Adverse effect of other systemic antibiotics, initial encounter; R21 Rash and other nonspecific skin eruption; R07.9 Chest pain, unspecified; Z99.2 Dependence on renal dialysis
CPT/HCPCS: 36415; 70486; 71010; 80053; 81001; 83605; 84484; 85025; 85610; 85730; 87040; 87086; 93005; 96365; 96366; 96375; J1200; J1956; J2930; J3370; Z7502; Z7610